=== PATIENT | female | born 1950 | race Caucasian/White ===

== ENCOUNTER → 2017-09-09 13:30 | Outpatient (CLI) | payer OTHER, SELFPAY ==
--- NOTE | 2017-09-09 13:33 | RAD_ITS ---
STUDY: X-RAY - RIGHT TIBIA AND FIBULA REASON FOR EXAM: Female, 67 years old. Pain TECHNIQUE: 3 view(s) of the tibia and fibula were obtained. COMPARISON: None. FINDINGS: Normal visualized tibia. Normal visualized fibula. The soft tissue structures are unremarkable. RAD/Tibia & Fibula 2 Views IMPRESSION: Normal x-ray examination of the tibia and fibula. Electronically Signed: Miki Turpin MD at 4:24 EDT , Service support ,
--- NOTE | 2017-09-09 13:35 | RAD_ITS ---
STUDY: X-RAY - RIGHT FOOT CLINICAL: Female, 67 years old. Midfoot pain, bruising TECHNIQUE: 3 view(s) of the foot. COMPARISON: None. FINDINGS: Normal talus, calcaneus, and tarsal bones. Normal visualized subtalar, talonavicular, calcaneocuboid, tarsal and tarsometatarsal articulations. Normal metatarsi. Normal metatarsophalangeal joint of the great toe. Normal tibial and fibular sesamoid bones. Normal interphalangeal joint of the great toe. Normal phalanges of the great toe. Normal second through fifth metatarsophalangeal joints. Normal interphalangeal joints and phalanges of the lesser toes. The soft tissue structures are unremarkable. RAD/Foot min 3 Views IMPRESSION: Normal x-ray examination of the foot. Electronically Signed: Steve Magdaleno MD at 8:08 EDT , Service support ,
== END ==
PROVIDERS: Family Provider Internal Medicine; PCP Internal Medicine; Visit Provider Nurse Practitioner Gerontology
DX: S89.91XA Unspecified injury of right lower leg, initial encounter (principal); M79.671 Pain in right foot
CPT/HCPCS: 73590; 73630

== ENCOUNTER → 2018-05-23 08:28 | Outpatient (CLI) | payer MEDICARE, OTHER, SELFPAY ==
[2017-07-01 16:06] VITALS: BMI 30.2
--- NOTE | 2018-05-23 08:32 | US_ITS ---
STUDY: ULTRASOUND OF THE FEMALE PELVIS - COMPLETE REASON FOR EXAM: Female, 68 years old. Bloating status post hysterectomy LMP: Unknown. TECHNIQUE: Transabdominal and Transvaginal. TECHNICAL QUALITY: Adequate. COMPARISON: CT November 02, 2012. FINDINGS: The uterus is absent consistent with hysterectomy The right ovary is non-visualized. The left ovary is visualized. The left ovary measures 2.5 x 2.0 x 1.4 cm. There is 1.4 cm cyst There is no visualized left adnexal mass or complex lesion. There is normal arterial and normal venous vascularity. There is no fluid in the cul-de-sac. The pre void volume of the bladder was 68 ml. The post void volume of the bladder was 0 ml. US/Transvaginal Non- IMPRESSION: Status post hysterectomy. Small left-sided cyst. Electronically Signed: Rolando Montalvo MD at 18:24 EDT , Service support ,
--- NOTE | 2018-05-23 08:32 | US_ITS ---
STUDY: ABDOMINAL ULTRASOUND REASON FOR EXAM: Female, 68 years old. Bloating and nausea. Discomfort. TECHNIQUE: Transabdominal ultrasound was performed with real-time and static urena scale imaging. TECHNICAL QUALITY: Adequate. COMPARISON: CT of the abdomen and pelvis, November 01, 2012. FINDINGS: Liver: The liver measures 17.0 cm. There is normal echogenicity of the liver. The bile ducts are within normal limits. There is hepatic color flow. The direction of portal flow is hepatopetal. There is no demonstrated mass lesion. Gallbladder: Normal distended gallbladder. The gallbladder wall measures 2 mm. There is a negative sonographic Hollis's sign. There is no pericholecystic fluid. There are no gallstones. Common Bile Duct (C.B.D.): The common bile duct measures 4 mm. Pancreas: Normal size of the head, body and proximal tail of the pancreas. The distal tail is obscured. There is normal echogenicity of the pancreas. There is no demonstrated pancreatic mass or cyst. Spleen: Normal size of the spleen. The spleen measures 11.8 cm. There are calcified granulomata seen within the spleen. Right Kidney: Normal size of the right kidney. The right kidney measures 10.1 cm. Normal renal cortex. The right cortex measures 1.4 cm. There is no demonstrated renal mass or cyst. There is no right hydronephrosis. Left Kidney: Normal size of the left kidney. The left kidney measures 10.1 cm. Normal renal cortex. The left cortex measures 1.8 cm. There is no demonstrated renal mass or cyst. There is no left hydronephrosis. Aorta: There is no abdominal aortic aneurysm. Mild atherosclerotic changes are seen. I.V.C.: The IVC is patent. There is no ascites. Examination of the abdominal wall was performed at a point of palpable mass. This is a site of frequent some cutaneous injection. This area there is a mildly echogenic focus within the subcutaneous fat measuring approximately 3.7 cm. US/Abdomen Complete IMPRESSION: 1. Normal abdominal ultrasound examination. 2. A faintly echogenic focus in the subcutaneous fat in the abdominal wall. There is no definite mass. Electronically Signed: Evin Hoyos DO at 10:21 EDT Tel [phone], Service support ,
== END ==
PROVIDERS: Family Provider Internal Medicine; PCP Internal Medicine; Referring Provider Nurse Practitioner; Visit Provider Nurse Practitioner
DX: R14.0 Abdominal distension (gaseous) (principal)
CPT/HCPCS: 76700; 76830

== ENCOUNTER → 2018-06-12 08:36 | Outpatient (CLI) | payer MEDICARE, OTHER, SELFPAY ==
--- NOTE | 2018-06-12 08:38 | NM_ITS ---
CLINICAL: 68-year-old female with reported history of chronic nausea and abdominal bloating. RADIONUCLIDE HEPATOBILIARY SCINTIGRAPHY COMPARISON: Abdominal ultrasound report 05/23/2018 FINDINGS: Following the intravenous administration of 5.6 mCi of 99m Tc Mebrofenin, hepatobiliary images reveal: 1. Relatively prompt and homogeneous radiopharmaceutical concentration is noted by a normal sized liver. No parenchymal defects are identified. 2. Gallbladder activity is identified at 15 minutes post radiopharmaceutical administration. 3. Small intestinal tract is observed at 45 minutes following tracer injection. 4. Washout of the radiopharmaceutical by the hepatic parenchyma appears qualitatively normal. Cholecystokinin (0.02 ug/kg) was administered intravenously over a 30-minute period. The post CCK gallbladder ejection fraction calculated at 20 minutes following Cholecystokinin administration was noted to be 73.0 % (normal greater than 35%). During 30 minutes of post CCK imaging, there is no scintigraphic evidence of reflux of the radiotracer into the common hepatic duct or refilling of the gallbladder. RI/Hepatobilliary Img w/Pharm Int IMPRESSION: 1. NORMAL 99m Tc Mebrofenin hepatobiliary imaging examination with Cholecystokinin. A. A gallbladder ejection fraction calculated to be greater than 35% following the administration of Cholecystokinin makes the probability of functional hepatobiliary disease (gallbladder and/or sphincter of Oddi dyskinesia) and/or organic hepatobiliary disease (chronic acalculous cholecystitis and/or cystic duct syndrome) to be low. (Kecia Mcpherson et al, Journal of Nuclear Medicine 32:1695, 1991). Electronically Signed: Brooks Prieto DO at 23:32 EDT Tel , Service support ,
== END ==
PROVIDERS: Family Provider Internal Medicine; PCP Internal Medicine; Referring Provider Internal Medicine; Visit Provider Internal Medicine
DX: R10.13 Epigastric pain (principal)
CPT/HCPCS: 78227; A9537; J2805

== ENCOUNTER → 2018-06-17 07:29 | Outpatient (CLI) | payer MEDICARE, OTHER, SELFPAY ==
[2017-07-01 16:06] VITALS: BMI 30.2
--- NOTE | 2018-06-17 07:31 | BI_ITS ---
MAMMOGRAPHY - BILATERAL SCREENING REASON FOR EXAM: Female, 68 years old. Routine annual screening examination. PERTINENT HISTORY: Non-contributory. TECHNIQUE: Digital bilateral breast abel (3D mammographic acquisition) in the CC and MLO projections. 2-D mediolateral oblique (MLO) and craniocaudad (CC) views of both breasts were obtained. CAD: Full Field Digital Mammography with Computer Added Detection was performed. COMPARISON: Comparison is made with prior study dated August 21, 2016 and May 23, 2015. FINDINGS: Breast Composition: There are scattered areas of fibroglandular density. There are no dominant masses or suspicious calcifications. Stable 1 cm well-defined nodule in the inferior medial superficial aspect of the left breast. Correlation with ultrasound of the breasts is recommended. No other significant abnormalities are identified. There has been no significant change since the prior study. BI/SCREENING MAMM (CAD), BILAT IMPRESSION: Stable bilateral screening mammogram. Correlation with ultrasound of the nodular density in the inferior medial aspect of the left breast is recommended. ASSESSMENT CATEGORY: BIRADS Category 0: Incomplete. Need additional imaging evaluation. A letter regarding these results will be sent to the patient by the facility within 30 days. Approximately 10% of breast cancers are not detected by mammography. A normal mammogram should not delay biopsy of a clinically suspicious abnormality. [id number] Electronically Signed: Nixon Ambrocio, at 9:33 EDT , Service support ,
== END ==
PROVIDERS: Family Provider Internal Medicine; PCP Internal Medicine; Referring Provider Nurse Practitioner; Visit Provider Nurse Practitioner
DX: Z12.31 Encounter for screening mammogram for malignant neoplasm of breast (principal)
CPT/HCPCS: 77063; 77067

== ENCOUNTER → 2018-06-19 09:08 | Outpatient (CLI) | payer MEDICARE, OTHER, SELFPAY ==
--- NOTE | 2018-06-19 09:10 | US_ITS ---
STUDY: ULTRASOUND BREAST - LEFT REASON FOR EXAM: Female, 68 years old. Abnormal screening mammogram. TECHNIQUE: Axial and longitudinal images of the LEFT breast were performed with a high resolution ultrasound transducer. COMPARISON: Comparison is made with prior mammogram dated June 17, 2018. FINDINGS: LEFT Breast: The lower half of the left breast was examined ultrasound. No sonographic abnormality is seen. Routine annual mammographic follow-up is recommended. US/Breast Limited Unilateral IMPRESSION: Unremarkable sonographic examination of the lower half of the breast. ASSESSMENT CATEGORY: BIRADS Category 1: Negative. A letter regarding these results will be sent to the patient by the facility within 30 days. Electronically Signed: Nixon Ambrocio, at 12:46 EDT , Service support ,
== END ==
PROVIDERS: Family Provider Internal Medicine; PCP Internal Medicine; Referring Provider Nurse Practitioner; Visit Provider Nurse Practitioner
DX: R92.8 Other abnormal and inconclusive findings on diagnostic imaging of breast (principal)
CPT/HCPCS: 76642

== ENCOUNTER → 2019-03-26 11:10 | Outpatient (CLI) | payer MEDICARE, OTHER, SELFPAY ==
[2018-07-07 12:46] VITALS: BMI 29.8
--- NOTE | 2019-03-26 11:16 | RAD_ITS ---
STUDY: X-RAY - RIGHT FEMUR REASON FOR STUDY: Female, 69 years old. pain upper outer thigh, not associated with activity, usually at night in bed or while sitting TECHNIQUE: AP and lateral view(s) of the femur. COMPARISON: None. FINDINGS: Normal visualized femur. Normal visualized soft tissue structure. RAD/Femur Min 2 Views IMPRESSION: Normal x-ray examination of the femur. Electronically Signed: Alek Gomez MD (Brooks) at 14:17 EST , Service support ,
== END ==
PROVIDERS: PCP Internal Medicine; Referring Provider Internal Medicine; Visit Provider Internal Medicine
DX: M89.8X5 Other specified disorders of bone, thigh (principal)
CPT/HCPCS: 73552

== ENCOUNTER 2019-06-23 09:08 | Emergency (ER) | payer MEDICARE, OTHER, SELFPAY ==
[2018-07-07 12:46] VITALS: BMI 29.8
[2019-06-23 09:09] VITALS: BP 122/72; PULSE 89; RESP 18; TEMP 36.1; O2SAT 96; BMI 23.8
--- NOTE | 2019-06-23 09:27 | ED.DCSUM_ITS ---
History of Present Illness Chief Complaint: Abn Labs Informant: Patient Onset: - - Onset unknown. Blood work was obtained Friday and patient was told her potassium is low, 3.1 Context: - - Unknown Timing: - - Unknown Quality: Low potassium Location: Not applicable Current Severity: Mild Maximum Severity: Mild Worsened by: Unknown. Relieved by: Nothing Associated Symptoms: Unintentional weight loss 30 pounds since December 2017 and bone pain Narrative: Patient is a 69-year-old woman with history of coronary disease, hypertension, hypercholesterolemia, diabetes and hypothyroidism who presents because of low potassium. Patient states she had blood work on Friday and her potassium is 3.1. She states she discontinued taking her blood pressure medicine, which included hydrochlorothiazide because her blood pressures were low, systolic in the 80s. She denies fever or chills. She does report weight loss of 30 pounds that is unintentional since December 2018 as well as intermittent night sweats the past month and bone pain for specifically right femur region mother had history of myelodysplastic disorder. Patient denies any complaint of headache, ocular, visual auditory symptoms. She denies cardiac symptoms or respiratory symptoms. She denies vomiting, diarrhea or constipation. She does report intermittent nausea the past month. She has not noted any change in the color, consistency or size of her stool. She she denies urologic symptoms. She denies neurologic symptoms. Prior similar symptoms: No Recent Illness/Hospitalization: No - Past Medical History (1) Hypothyroidism Status: Chronic (2) Type 2 diabetes mellitus Status: Chronic (3) Atherosclerosis of coronary artery of [place] without angina pectoris Status: Chronic Comment: CABG x 2 Sequential MANCILLA-LAD and D1 06/15/2007 (4) Essential (primary) hypertension Status: Chronic (5) Hyperlipidemia Status: Chronic (6) H/O coronary artery bypass surgery Status: Resolved Comment: CABG x 2 Sequential MANCILLA-LAD and D1 06/15/2007 (7) Lipoprotein deficiency Status: Resolved Past Medical History - Allergies and Home Meds Allergies/Adverse Reactions: Allergies LISBETH Inhibitors Adverse Reaction (Verified 06/23/19 09:12) cough Primary Care Physician: Kassi Godoy DO [Primary Care Provider] - Prior records reviewed: Yes Surgical History: noncontributory Lives: Alone Smoking Status: Never smoker Alcohol: None Drugs: None Review of Systems General: Reports: Malaise, Sweats, Weight loss. Denies: Chills, Fever, Subjective Eyes: Denies: Visual changes - bilaterally, Blurred Vision - bilaterally ENT: Denies: Rhinorrhea, Sore throat Cardiovascular: Reports: Palpitations. Denies: Chest pain, Heart racing Respiratory: Denies: Dyspnea, Cough, Sputum, Dyspnea on exertion, Orthopnea, Paroxysmal nocturnal dyspnea Gastrointestinal: Reports: Abdominal pain, Nausea. Denies: Vomiting, Diarrhea, Constipation, Melena, Hematochezia Genitourinary: Denies: Dysuria, Hematuria, Frequency Musculoskeletal: Reports: Back pain - Mid back intrascapular region, Extremity Pain, - - Complains of cramping calves recently. Symptoms are not with activity to suggest claudication. Denies: Myalgias, Arthralgias, Neck pain, Swelling Skin: Denies: Rash, Wounds Neurological: Denies: Headache, Weakness, Parasthesia Psych: Denies: Depression Endocrine: Denies: Polyuria, Polydipsia Hematologic: Denies: Easy bruising, Easy bleeding Allergy: Denies: Uticaria Physical Exam Vital Signs/Narrative: Vital Signs Temp Pulse Resp BP Pulse Ox 06/23/19 09:09 96.9 F L 89 18 122/72 H 96 Inital Vital Signs reviewed: Yes General: Well nourished, Well developed, No Acute Distress Head: Normocephalic, Atraumatic Eyes: Perrl, EOMI. Negative for: Pale conjunctiva, Scleral icterus ENT: Moist mucous membranes, No rhinorrhea Neck: Supple, Nontender, No lymphadenopathy, No JVD Cardiovascular: Regular rate, Regular rhythm, No murmurs, Normal S1, Normal S2 Respiratory: No distress, CTA bilaterally, Chest nontender Abdomen: Soft, Nontender, Nondistended, Normal bowel sounds, No masses Back: Nontender, Normal Inspection. Negative for: CVA tenderness Extremities: Nontender, No edema Skin: Normal color, No rash, No Trauma. Negative for: Cyanosis, Diaphoresis, Jaundice Neurological: Alert, Oriented x3, Cranial nerves II-XII grossly intact, Normal Strength, Normal Sensation Psychological: Normal affect, Normal Mood Diagnostic/Tx/Re-eval Laboratory Results 06/23/19 06/23/19 09:35 09:35 WBC 8.8 RBC 5.17 Hgb 14.2 Hct 43.4 MCV 83.9 MCH 27.5 MCHC 32.7 RDW Std Deviation 42.3 RDW Coeff of Nolvia 13.8 Plt Count 177 MPV 10.4 Immature Gran % (Auto) 0.300 Neut % (Auto) 77.2 H Lymph % (Auto) 13.2 L Miller % (Auto) 6.9 Eos % (Auto) 1.9 Baso % (Auto) 0.5 Absolute Neuts (auto) 6.8 Absolute Lymphs (auto) 1.16 Nucleated RBC % 0 ESR 4 Sodium 143 Potassium 3.1 L Chloride 104 Carbon Dioxide 32.0 Anion Gap 7 BUN 17 Creatinine 1.32 H Estim Creat Clear Calc 32.26 Est GFR (MDRD) Af Amer 51 L Est GFR (MDRD) Non-Af 43 L BUN/Creatinine Ratio 12.9 Glucose 128 H Calcium 9.6 Total Bilirubin 0.80 AST 14 L ALT 19 Alkaline Phosphatase 61 Total Protein 7.2 Albumin 3.9 Globulin 3.3 Albumin/Globulin Ratio 1.2 - Medical Decision Making She presents with multiple symptoms. With history of fatigue, malaise, night sweats and weight loss need to rule out malignancy. Will review x-rays of right hip/femur that were obtained earlier this year. Differential would include lung cancer, colon cancer, hematologic and breast cancer. Patient is status post hysterectomy secondary to abnormal bleeding in her 20s. The hysterectomy was n ot due to cancer. She did receive 40 mEq of potassium chloride p.o. Blood work was obtained to evaluate her symptoms and differential diagnosis. Potassium is 3.1. She received 2 doses of potassium chloride solution of 40 mEq. She was discharged with prescription for potassium. Her creatinine is slightly elevated 1.32. She was instructed to follow-up with her primary care physician for repeat blood work in 5 to 7 days. She was informed her other tests were negative. Patient's weight loss is due to her diabetic medication. ED Disposition - Plan for ED Patient: Disposition: Home or Assisted Living Diagnosis: Hypokalemia, Unintentional weight loss of 10% body weight within 6 months, Acute renal insufficiency, Type 2 diabetes mellitus, Hypothyroidism, Hyperlipidemia Instructions: ED Potassium Deficiency Prescriptions: Potassium Chloride 20 meq PO DAILY #60 capsule.er Prescription Printed Referrals: Kassi Godoy DO [Primary Care Provider] - 5-7 Days
[2019-06-23 09:50] LABS: Erythrocyte Sedimentation Rate 4 mm/hr (0-30)
[2019-06-23 09:51] LABS: Absolute Lymphocyte Count 1.16 X10^3/uL (0.83-4.51); Absolute Neutrophil Count 6.8 X10^3/uL (2.0-7.7); Basophil# 0.04 X10^3/uL; Basophil% 0.5 % (0-1); Eosinophil# 0.17 X10^3/uL; Eosinophils% 1.9 % (0-5); Hematocrit 43.4 % (37-47); Hemoglobin 14.2 g/dL (12.0-15.0); Lymphocyte # 1.16 X10^3/ul (4.0); Lymphocyte % 13.2 % (19-41); Mean Corp Hgb Conc 32.7 g/dL (32-36); Mean Corpuscular Hgb 27.5 pg (27.0-32.0); Mean Corpuscular Volume 83.9 fL (81-99); Mean Platelet Vol. 10.4 fl (6.2-12.0); Monocyte# 0.61 X10^3/uL; Monocyte% 6.9 % (0-10); NRBC Flagged by Analyzer 0 % (0-5); Neutrophil # 6.79 X10^3/uL (2.7-7.7); Neutrophil % 77.2 % (47-70); Platelet Count 177 K/mm3 (150-450); RBC Distribution Width CV 13.8 % (11.6-14.6); RBC Distribution Width SD 42.3 fl (35.1-43.9); Red Blood Count 5.17 M/mm3 (4.2-5.4); White Blood Count 8.8 K/mm3 (4.4-11.0)
[2019-06-23 10:01] LABS: ALB/GLOB Ratio 1.2 RATIO (0.9-2.4); AST(SGOT) 14 U/L (15-37); Alanine Aminotransfer ALT/SGPT 19 U/L (13-56); Albumin, Serum 3.9 g/dL (3.2-5.0); Alkaline Phosphatase 61 U/L (45-117); Anion Gap 7 (5-15); BUN 17 mg/dL (7-18); BUN/Creat Ratio 12.9 RATIO (10-20); Calcium,Total 9.6 mg/dL (8.5-10.1); Chloride 104 mmol/L (98-107); Creatinine, Serum 1.32 mg/dL (0.55-1.02); EST Glomerular Filtration Rate 43 mL/min (>60); Est Glom Filt Rate - Afr Amer 51 mL/min (>60); Estimated Creatinine Clearance 32.26 ml/min; Globulin 3.3 g/dL (2.2-4.2); Glucose 128 mg/dL (74-106); Potassium 3.1 mmol/L (3.5-5.1); Protein, Total 7.2 g/dL (6.4-8.2); Sodium Level 143 mmol/L (136-145)
[2019-06-23 10:48] VITALS: BP 113/83; PULSE 80; RESP 12; O2SAT 94
== END 2019-06-23 10:54 | disposition home or self-care (01) ==
PROVIDERS: Emergency Provider Emergency Medicine; PCP Internal Medicine
DX: E87.6 Hypokalemia (principal); R63.4 Abnormal weight loss; N28.9 Disorder of kidney and ureter, unspecified; E11.9 Type 2 diabetes mellitus without complications; E03.9 Hypothyroidism, unspecified; E78.5 Hyperlipidemia, unspecified; I25.10 Atherosclerotic heart disease of native coronary artery without angina pectoris; I10 Essential (primary) hypertension; Z95.1 Presence of aortocoronary bypass graft; Z68.23 Body mass index [BMI] 23.0-23.9, adult; Z79.82 Long term (current) use of aspirin; Z79.84 Long term (current) use of oral hypoglycemic drugs; Z79.899 Other long term (current) drug therapy
CPT/HCPCS: 80053; 85025; 85652; 99285; A4216

== ENCOUNTER → 2019-09-30 14:47 | Outpatient (CLI) | payer MEDICARE, OTHER, SELFPAY ==
[2019-07-08 11:38] VITALS: BMI 24.3
--- NOTE | 2019-09-30 14:55 | BI_ITS ---
MAMMOGRAPHY - BILATERAL SCREENING REASON FOR EXAM: Female, 69 years old. Routine annual screening examination. PERTINENT HISTORY: Non-contributory. TECHNIQUE: Digital bilateral breast maira (3D mammographic acquisition) in the CC and MLO projections. 2-D mediolateral oblique (MLO) and craniocaudad (CC) views of both breasts were obtained. CAD: Full Field Digital Mammography with Computer Added Detection was performed. COMPARISON: Comparison is made with prior examination dated 06/17/2018 and 08/21/2016. FINDINGS: Breast Composition: There are scattered areas of fibroglandular density. There are no dominant masses or suspicious calcifications. Stable 1 cm well-defined nodule in the slightly upper lateral aspect of the left breast. No other significant abnormalities are identified. There has been no significant change since the prior study. BI/SCREEN MAMM (CAD) W/MAIRA BILAT IMPRESSION: Stable bilateral screening mammogram. Yearly follow-up mammogram recommended. (A) ASSESSMENT CATEGORY: BIRADS Category 2: Benign. A letter regarding these results will be sent to the patient by the facility within 30 days. Approximately 10% of breast cancers are not detected by mammography. A normal mammogram should not delay biopsy of a clinically suspicious abnormality. [id number] Electronically Signed: Nixon Ambrocio, at 15:49 EDT , Service support ,
== END ==
PROVIDERS: PCP Internal Medicine; Referring Provider Internal Medicine; Visit Provider Internal Medicine
DX: Z12.31 Encounter for screening mammogram for malignant neoplasm of breast (principal)
CPT/HCPCS: 77063; 77067

== ENCOUNTER → 2019-10-28 13:11 | Outpatient (CLI) | payer MEDICARE, OTHER, SELFPAY ==
[2019-07-08 11:38] VITALS: BMI 24.3
--- NOTE | 2019-10-28 13:17 | BD_ITS ---
STUDY: DUAL ENERGY X-RAY ABSORPTIOMETRY / DXA REASON FOR EXAM: Female, 69 years old. RESERVATIONS SPECIALIST -- DIABETIC- TAKES MEDS -- TAKES SYNTHROID -- TAKES DIURETIC NEEDED -- DOES MODERATE AMOUNT OF EXERCISE -- AMPARO OF 0.5 INCH TECHNIQUE: Bone Mineral Density (BMD) measurements of lumbar spine and bilateral hips were obtained. COMPARISON: Comparison is made with prior study dated 10/12/2013. FINDINGS: Lumbar Spine (L1-L4): g/cm2 (1.064) / T-score (-1.0) / Z-score (0.7) Findings are suggestive of normal bone density with a low fracture risk. Left Femur Total: g/cm2 (1.047) / T-score (0.3) / Z-score (1.7) Left Femoral Neck: g/cm2 (0.983) / T-score (-0.4) / Z-score (1.2) Right Femur Total: g/cm2 (1.025) / T-score (0.1) / Z-score (1.5) Right Femoral Neck: g/cm2 (0.961) / T-score (-0.6) / Z-score (1.1) The T-Scores on the most recent prior examination were: Lumbar Spine (L1-L4): There has been improvement of bone density since the previous examination. Left Femur Total: which represents a worsening of 0.9%. Right Femur Total: which represents a worsening of 8.7%. BD/Dexa Bone Density Study IMPRESSION: The patient is considered normal as outlined below according to World [employer] Organization (WHO) criteria with a low fracture risk. There has been worsening of bone density since the previous examination. Reference Information: The T-score is the number of standard deviations above or below the standard which is normal for young adults at their peak bone mineral density. The World Health Organization (WHO) interprets the T-scores as follows: Above -1 Normal bone density Between -1 and -2.5 Osteopenia Equal to / or below -2.5 Osteoporosis As a practical clinical guideline, osteopenia may be graded as follows: Mild -1 through -1.5 Moderate -1.6 through -2.0 Severe -2.1 through -2.4 The Z-score is the number of standard deviations above or below age-matched controls. A Z-score of less than -1.5 would be considered abnormal. References: 1. NIH Osteoporosis and Related Bone Diseases http://www.osteo.org 2. International Society for Clinical Densitometry http://www.iscd.org 3. National Osteoporosis Foundation http://www.nof.org Electronically Signed: Nixon Ambrocio, at 15:06 EDT , Service support ,
== END ==
PROVIDERS: PCP Internal Medicine; Referring Provider Internal Medicine; Visit Provider Internal Medicine
DX: Z78.0 Asymptomatic menopausal state (principal)
CPT/HCPCS: 77080

== ENCOUNTER 2020-02-07 01:59 | Emergency (ER) | payer MEDICARE, OTHER, SELFPAY ==
[2019-07-08 11:38] VITALS: BMI 24.3
[2020-02-07 02:00] VITALS: BP 176/93; PULSE 75; RESP 20; TEMP 36.5; O2SAT 96; BMI 25.9
--- NOTE | 2020-02-07 02:08 | CT_ITS ---
STUDY: CT ABDOMEN AND PELVIS WITH CONTRAST REASON FOR EXAM: Female, 70 years old. Left lower quadrant pain, nausea, elevated blood pressure. RADIATION DOSAGE (If Supplied By Facility): CTDIvol = ( 12.67 ) mGy, DLP = ( 619.01 ) mGycm TECHNIQUE: Transaxial images were obtained from the dome of the diaphragm to the symphysis pubis without oral contrast. IV 100mL Isovue-[id number] was administered. Sagittal and coronal images were reconstructed. Individualized dose optimization techniques were used for this CT. COMPARISON: None. FINDINGS: The visualized lung bases are unremarkable. Mild cardiomegaly. Coronary artery calcifications. Mildly elevated right hemidiaphragm. Normal liver. Normal gallbladder and extrahepatic biliary system. There are multiple benign calcified granulomata of the spleen. Normal pancreas. Normal bilateral adrenal glands. Normal right kidney. Left hydronephrosis and circumferential perinephric fluid secondary to a 1 mm x 1 mm ureterovesicular junction stone. Distal stomach not well distended limiting evaluation. Normal small intestine. Normal colon. The appendix is visualized and appears normal. There is atherosclerotic calcification of the abdominal aorta, without a demonstrated aneurysm. Normal inferior vena cava. Normal retroperitoneum. No intra-abdominal free air. Normal urinary bladder. There is absence of the uterus consistent with a prior hysterectomy. No adnexal masses seen. Normal abdominal wall. Multilevel degenerative changes of the lumbar spine. Patchy stranding within the anterior subcutaneous soft tissue of the lower abdomen suggestive of medication injection. CT/Abdomen/Pelvis W IV Cont ONLY IMPRESSION: Mild left hydronephrosis secondary to a very small ureterovesicular junction stone. Circumferential mild left perinephric fluid. Recommend continued follow-up. Mild cardiomegaly. Coronary artery calcifications. Electronically Signed: Ghassan Harp MD at 4:49 EST , Service support ,
--- NOTE | 2020-02-07 02:08 | ED.VIS.GEN ---
History of Present Illness Chief Complaint: Abd Pain Informant: Patient Narrative: 70-year-old female with past medical history of hypertension and diabetes presents with concern for left lower quadrant pain. States it began approximately 4 to 5 hours ago. States it is aching and radiating through to her left back. No relieving or worsening factors. Denies any fever, chills, nausea, vomiting, diarrhea, constipation, vaginal bleeding or discharge. Past Medical History - Allergies and Home Meds Allergies/Adverse Reactions: Allergies LISBETH Inhibitors Adverse Reaction (Verified 06/23/19 09:12) cough Primary Care Physician: Kassi Godoy DO [Primary Care Provider] - Prior records reviewed: Yes Past Medical History: - - Hypertension, diabetes Surgical History: hysterectomy Lives: Spouse/ Significant Other Smoking Status: Never smoker Alcohol: None Drugs: None Review of Systems General: Denies: Chills, Fever, Sweats Eyes: Denies: Visual changes - bilaterally, Diplopia ENT: Denies: Rhinorrhea, Sore throat Cardiovascular: Denies: Chest pain, Palpitations Respiratory: Denies: Dyspnea, Cough, Dyspnea on exertion Gastrointestinal: Reports: Abdominal pain. Denies: Nausea, Vomiting, Diarrhea, Melena, Hematochezia Genitourinary: Denies: Dysuria, Hematuria, Frequency Musculoskeletal: Denies: Back pain, Extremity Pain Skin: Denies: Rash, Wounds Neurological: Denies: Headache, Weakness, Numbness Physical Exam Vital Signs/Narrative: Vital Signs Temp Pulse Resp BP Pulse Ox 02/07/20 02:00 97.7 F L 75 20 H 176/93 H 96 Inital Vital Signs reviewed: Yes General: Well nourished, Well developed, No Acute Distress Head: Normocephalic, Atraumatic Eyes: Perrl, EOMI ENT: Moist mucous membranes, No rhinorrhea Neck: Supple, Nontender Cardiovascular: Regular rate, Regular rhythm, No murmurs Respiratory: No distress, CTA bilaterally, Chest nontender Abdomen: Soft, Nondistended, Normal bowel sounds, - - TTP left lower quadrant. Back: Nontender, Normal Inspection Extremities: Nontender, No edema Skin: Normal color, No rash Neurological: Alert, Oriented x3, Cranial nerves II-XII grossly intact, Normal Strength, Normal Sensation Psychological: Normal affect, Normal Mood Diagnostic/Tx/Re-eval Clinical Impression(s) from Imaging Studies Abdomen/Pelvis CT 02/07/20 02:08 IMPRESSION: Mild left hydronephrosis secondary to a very small ureterovesicular junction stone. Circumferential mild left perinephric fluid. Recommend continued follow-up. Mild cardiomegaly. Coronary artery calcifications. Electronically Signed: Ghassan Harp MD at 4:49 EST , Service support , Laboratory Data 02/07/20 02/07/20 02/07/20 02:15 02:15 03:00 WBC 7.9 RBC 5.36 Hgb 14.8 Hct 46.9 MCV 87.5 MCH 27.6 MCHC 31.6 L RDW Std Deviation 42.8 RDW Coeff of [place]ol[place] 13.5 Plt Count 184 MPV 10.3 Immature Gran % (Auto) 0.400 Neut % (Auto) 69.4 Lymph % (Auto) 18.4 L [place] % (Auto) 8.0 Eos % (Auto) 3.3 Baso % (Auto) 0.5 Absolute Neuts (auto) 5.5 Absolute Lymphs (auto) 1.45 Nucleated RBC % 0 Sodium 145 Potassium 3.3 L Chloride 108 H Carbon Dioxide 31.0 Anion Gap 6 BUN 17 Creatinine 1.21 H Estim Creat Clear Calc 34.71 Est GFR (MDRD) Af Amer 57 L Est GFR (MDRD) Non-Af 47 L BUN/Creatinine Ratio 14.0 Glucose 98 Calcium 9.6 Total Bilirubin 0.90 AST 13 L ALT 19 Alkaline Phosphatase 77 Total Protein 7.2 Albumin 4.1 Globulin 3.1 Albumin/Globulin Ratio 1.3 Lipase 219 Urine Color Yellow Urine Clarity Sl. Cloudy Urine pH 6.0 Ur Specific [place] 1.020 Urine Protein 100 H Urine Glucose (UA) Normal Urine Ketones Negative Urine Occult Blood 50 H Urine Nitrite Negative Urine Bilirubin Negative Urine Urobilinogen Normal Ur Leukocyte Esterase 500 H Urine RBC 10-25 SEEN Urine WBC 10-25 SEEN Ur Squamous Epith Cells 0-5 SEEN Urine Bacteria 1+ Urine Mucus 0 SEEN - Medical Decision Making Patient appears well and nontoxic. Patient having pain secondary to left abdominal and flank pain. CT shows 1 mm UVJ stone with perinephric stranding and mild hydronephrosis. Patient was given fluids, morphine, Zofran, and Dilaudid. Patient's pain was resolved. Urine shows leukocytes without nitrites. Patient will be placed on Keflex, Percocet, Zofran and asked to follow-up with primary care. Asked to return for any intractable vomiting or pain. Patient agreeable and discharged home in stable condition. Impression: 1. Ureterolithiasis ED Disposition - Plan for ED Patient: Disposition: Home or Assisted Living Instructions: Kidney Stone (Urine) Prescriptions: Cephalexin [Keflex] 500 mg PO Q6 #28 cap Prescription Printed Oxycodone HCl/Acetaminophen [Percocet 5/325] 1 tab PO Q6H PRN PRN 3 Days #12 tab PRN Reason: Pain Prescription Printed Ondansetron [Zofran Odt] 4 mg PO Q8H PRN PRN #10 tab PRN Reason: Nausea Prescription Printed Referrals: Kassi Godoy DO [Primary Care Provider] - 2 Days
[2020-02-07] MEDS: Morphine 4 MG/ML Syringe IV (02:18)
[2020-02-07] MEDS: Ondansetron 4 MG/2 ML Vial IV (02:18)
[2020-02-07] MEDS: 0.9% Normal Saline 1,000 ML 1000 ML IV (02:18)
[2020-02-07 02:41] LABS: Absolute Lymphocyte Count 1.45 X10^3/uL (0.83-4.51); Absolute Neutrophil Count 5.5 X10^3/uL (2.0-7.7); Basophil# 0.04 X10^3/uL; Basophil% 0.5 % (0-1); Eosinophil# 0.26 X10^3/uL; Eosinophils% 3.3 % (0-5); Hematocrit 46.9 % (37-47); Hemoglobin 14.8 g/dL (12.0-15.0); Lymphocyte # 1.45 X10^3/ul (4.0); Lymphocyte % 18.4 % (19-41); Mean Corp Hgb Conc 31.6 g/dL (32-36); Mean Corpuscular Hgb 27.6 pg (27.0-32.0); Mean Corpuscular Volume 87.5 fL (81-99); Mean Platelet Vol. 10.3 fl (6.2-12.0); Monocyte# 0.63 X10^3/uL; NRBC Flagged by Analyzer 0 % (0-5); Neutrophil # 5.48 X10^3/uL (2.7-7.7); Neutrophil % 69.4 % (47-70); Platelet Count 184 K/mm3 (150-450); RBC Distribution Width CV 13.5 % (11.6-14.6); RBC Distribution Width SD 42.8 fl (35.1-43.9); Red Blood Count 5.36 M/mm3 (4.2-5.4); White Blood Count 7.9 K/mm3 (4.4-11.0)
[2020-02-07 03:05] LABS: ALB/GLOB Ratio 1.3 RATIO (0.9-2.4); AST(SGOT) 13 U/L (15-37); Alanine Aminotransfer ALT/SGPT 19 U/L (13-56); Albumin, Serum 4.1 g/dL (3.2-5.0); Alkaline Phosphatase 77 U/L (45-117); Anion Gap 6 (5-15); BUN 17 mg/dL (7-18); Calcium,Total 9.6 mg/dL (8.5-10.1); Chloride 108 mmol/L (98-107); Creatinine, Serum 1.21 mg/dL (0.55-1.02); EST Glomerular Filtration Rate 47 mL/min (>60); Est Glom Filt Rate - Afr Amer 57 mL/min (>60); Estimated Creatinine Clearance 34.71 ml/min; Globulin 3.1 g/dL (2.2-4.2); Glucose 98 mg/dL (74-106); Lipase 219 U/L (73-393); Potassium 3.3 mmol/L (3.5-5.1); Protein, Total 7.2 g/dL (6.4-8.2); Sodium Level 145 mmol/L (136-145)
[2020-02-07 03:11] LABS: Mucous, Urine 0 SEEN /hpf (<or=2+)
[2020-02-07 03:12] LABS: Color, Urine Yellow (Yellow); Glucose, Dipstick Normal (Normal); Ketone-Dipstick Negative (Negative); Leukocyte Esterase-Dipstick 500 /ul (Negative); Nitrite-Dipstick Negative (Negative); Occult Blood-Urine 50 /ul (Negative); Protein-Dipstick 100 mg/dl (Negative); Urine Bilirubin Dipstick Negative (Negative); Urine Clarity Sl. Cloudy (Clear); Urine Urobilinogen Normal (Normal)
[2020-02-07 03:17] LABS: Red Blood Cells-Urine 10-25 SEEN /hpf (0-5); Squamous Epithelial Cells - UA 0-5 SEEN /hpf (5-10); White Blood Cells 10-25 SEEN /hpf (0-5)
[2020-02-07 03:18] LABS: Bacteria 1+ /hpf (None Seen)
[2020-02-07] MEDS: HYDROmorphone 0.5 MG/0.5 ML SYRINGE IV (03:35)
[2020-02-07 03:50] VITALS: PULSE 76; RESP 10; O2SAT 80
[2020-02-07 03:57] VITALS: BP 139/77; PULSE 72; RESP 12; O2SAT 100
[2020-02-07 05:26] VITALS: BP 137/98; PULSE 69; RESP 18; O2SAT 98
== END 2020-02-07 05:27 | disposition home or self-care (01) ==
PROVIDERS: Emergency Provider Emergency Medicine; PCP Internal Medicine
DX: N13.2 Hydronephrosis with renal and ureteral calculous obstruction (principal); I10 Essential (primary) hypertension; E11.9 Type 2 diabetes mellitus without complications; Z90.710 Acquired absence of both cervix and uterus; Z79.84 Long term (current) use of oral hypoglycemic drugs; Z79.82 Long term (current) use of aspirin; Z79.899 Other long term (current) drug therapy
CPT/HCPCS: 74177; 80053; 81001; 83690; 85025; 96361; 96374; 96375; 99283; J7030; Q9967; A4216; J2405

== ENCOUNTER 2020-05-01 11:07 | Outpatient (RCR) | payer MEDICARE, OTHER, SELFPAY | END 2020-05-01 23:59 | LOC: IMMUN 11:07 | PROVIDERS: PCP Internal Medicine; Visit Provider Family Medicine | DX: Z23 Encounter for immunization (principal) | CPT/HCPCS: 0011A; 0012A ==

== ENCOUNTER 2020-08-01 09:30 | Outpatient (RCR) | payer MEDICARE, OTHER, SELFPAY ==
--- NOTE | 2020-07-03 11:23 | HP.PTEVAL ---
Patient's Visit Information ROBERTO KIRK is a 70 year old F referred to Physical Therapy by Dr. Kassi Godoy DO with a diagnosis of R shoulder pain. Date of Evaluation: 07/03/20 Physical Therapist: VALERIY Michelle - Visit Plan Frequency: 2x /Week Duration: 4 Weeks Plan: 2X/ week for 4 weeks for progression of wand exercises (may do L as it is starting to hurt as well), scapular and postural exercises, RC strengthening, pec stretches, with HEP and modalities as needed. HEP: standing wand abd, supine wand flexion, and doorway Pec stretch and ER stretch - Subjective Since Dec-Jan her R shoulder has been bothering her. It has gotten better but she could not wash her hair or raise her arm above her shoulder or lift anything cause it would hurt. It would really hurt when she layed on her R side. She has been mostly sleeping on her back or stomach and tries to get arms comfortable. She does a lot of flip flopping cause of the pain. Now her L shoulder is starting to hurt because she has been babying her R shoulder. She wants to play golf this summer. She is not sure if golfing at the end of the season last year hurt it or she was moving furniture off the deck and was straining. It is getting better. She is R handed. She has no N&T. She has no neck pain. - Pain R shoulder pain Pain Intensity (Out of 10): 5 Pain Intensity Range: 8 Comment: with over use - Objective Certified Ophthalmic Assistant strength B 40#. Posture: sits with rounded shoulders. R shoulder AROM 71 degrees flexx, 66 degrees abd, 34 degrees ER, T12 IR. L Shoulder AROM WFL Flex and abd (increase pain at end range), ER 50 degrees, T8 IR. R shld MMT: flex and abd 3+/5, ER 4-/5, IR 4/5. L shld MMT: flex, abd, ER and IR 4/5. Pt winces when she went to reach behind her back. palpation R shoulder: tender along the bicep groove, and anterior shoulder. PROM R shoulder: pain at all end range motion. Discussed sitting with good posture and mechanics of the shoulder and impingement, ADL's and how to avoid bad shoulder posturing - Goals Goal 1:: I HEP Goal Time Frame: 4-6 Weeks Goal 2:: Increase R shoulder AROM to full AROM painfree Goal Time Frame: 4-6 Weeks Goal 3:: Increase R shoulder stretgth by 1/2 muscle grade (at time of eval: R shld MMT: flex and abd 3+/5, ER 4-/5, IR 4/5). Goal Time Frame: 4-6 Weeks Goal 4:: Sit/stand with upright posture with scapular retraction during therapy sessions Goal Time Frame: 4-6 Weeks - Rehabilitation Potential Rehabilitation Potential: Good - Anticipated Interventions Patient/Client Instruction: Educate patient on: Condition, Plan of Care For the Purpose of:: To decrease pain, To decrease swelling/inflammation, To increase ROM, To improve nutrient delivery to tissue, To improve muscle performance and motor function, To improve ability to perform ADL's, To increase tolerance to activity/condition/position, To improve health of tissue, To decrease soft tissue restriction, To increase flexibility/ROM Therapeutic Exercise to Include: Strength training, Postural training, Flexibilty training, Passive ROM, Active ROM, Scapular Strength/Stabilization For the Purpose of:: To decrease pain, To decrease swelling/inflammation, To increase ROM, To improve nutrient delivery to tissue, To improve muscle performance and motor function, To improve ability to perform ADL's, To increase tolerance to activity/condition/position, To improve ability of physical actions for home/community/work/leisure, To improve health of tissue, To decrease soft tissue restriction, To increase flexibility/ROM Manual Therapy Techniques to Include: Passive ROM For the Purpose of:: To increase ROM, To improve nutrient delivery to tissue Cryotherapy (ice pack, ice massage): Yes Ultrasound (thermal/non thermal): Yes For the Purpose of:: To decrease pain, To decrease swelling/inflammation, To increase ROM, To improve nutrient delivery to tissue Thank you for the opportunity to evaluate your patient. For Medicare and Medicare HMO plans, please review the plan of care and approve it. It will need to be FAXED BACK to us at [phone] for Medicare purposes. For Medicare only, by signing this I certify the plan of care. Please let me know if there are questions or concerns regarding this plan of care. Physician Signature: Date:
--- NOTE | 2020-08-01 09:54 | HP.PTREVAL_ITS ---
Dr. Kassi Godoy, DO, It has been my pleasure to treat ROBERTO KIRK over the last 9 visits for R shoulder pain. Please see the progress note below for an update on the physical therapy plan of care! Subjective: Pt feels better and thinks that the exercises and PT have been working. Last week she took is slow cause she was sore from harder workout. S he is back to normal today. She is doing her HEP almost everyday... except when sore. Every now and then she get a little pool in her shoulder. She can reach behind hr back and can wash her hair. SHe feels like Objective/Function: Pt still reminds herself to sit with good posture. R shld MMT: flex 4-/5 and abd 4/5, ER 4/5, IR 4/5). R shoulder AROM is functional Plan Plan: Hold Chart X 3 weeks (08-22-2020)... Pt will call and let me know if she feels she is still progressing or not and needs to come in for PT. Goals Goal 1:: I HEP Goal Time Frame: 4-6 Weeks Goal Progress: Goal Met Goal 2:: Increase R shoulder AROM to full AROM painfree Goal Time Frame: 4-6 Weeks Goal Progress: Goal Met Goal 3:: Increase R shoulder stretgth by 1/2 muscle grade (at time of eval: R shld MMT: flex and abd 3+/5, ER 4-/5, IR 4/5). Goal Time Frame: 4-6 Weeks Goal Progress: Progressing Goal 4:: Sit/stand with upright posture with scapular retraction during therapy sessions Goal Time Frame: 4-6 Weeks Goal Progress: Progressing Anticipated Interventions Patient/Client Instruction: Educate patient on: Condition, Plan of Care For the Purpose of:: To decrease pain, To decrease swelling/inflammation, To increase ROM, To improve nutrient delivery to tissue, To improve muscle performance and motor function, To improve ability to perform ADL's, To increase tolerance to activity/condition/position, To improve health of tissue, To decrease soft tissue restriction, To increase flexibility/ROM Therapeutic Exercise to Include: Strength training, Postural training, Flexibilty training, Passive ROM, Active ROM, Scapular Strength/Stabilization For the Purpose of:: To decrease pain, To decrease swelling/inflammation, To increase ROM, To improve nutrient delivery to tissue, To improve muscle performance and motor function, To improve ability to perform ADL's, To increase tolerance to activity/condition/position, To improve ability of physical actions for home/community/work/leisure, To improve health of tissue, To decrease soft tissue restriction, To increase flexibility/ROM Manual Therapy Techniques to Include: Passive ROM For the Purpose of:: To increase ROM, To improve nutrient delivery to tissue Cryotherapy (ice pack, ice massage): Yes Ultrasound (thermal/non thermal): Yes For the Purpose of:: To decrease pain, To decrease swelling/inflammation, To increase ROM, To improve nutrient delivery to tissue Please do not hesitate to contact me at [phone] by phone or if you have questions or concerns regarding this new plan of care! Sincerely, Luma Burden, MPT
--- NOTE | 2020-12-06 11:55 | HP.PTDCSUM ---
It has been my pleasure to treat ROBERTO KIRK referred by Dr. Kassi Godoy DO, with the diagnosis of R shoulder pain for a total of 9 visit(s). Discharge Date: 12/06/20 Please see the following information for a summary of their discharge status. Subjective: Pt feels better and thinks that the exercises and PT have been working. Last week she took is slow cause she was sore from harder workout. She is back to normal today. She is doing her HEP almost everyday... except when sore. Every now and then she get a little pool in her shoulder. She can reach behind hr back and can wash her hair. SHe feels like R shoulder pain Pain Intensity (Out of 10): 2 % Improvement: 95 Objective/Function: Pt still reminds herself to sit with good posture. R shld MMT: flex 4-/5 and abd 4/5, ER 4/5, IR 4/5). R shoulder AROM is functional Goal 1:: I HEP Goal Progress: Goal Met Goal 2:: Increase R shoulder AROM to full AROM painfree Goal Progress: Goal Met Goal 3:: Increase R shoulder stretgth by 1/2 muscle grade (at time of eval: R shld MMT: flex and abd 3+/5, ER 4-/5, IR 4/5). Goal Progress: Progressing Goal 4:: Sit/stand with upright posture with scapular retraction during therapy sessions Goal Progress: Progressing Plan: Hold Chart X 3 weeks (08-22-2020)... Pt will call and let me know if she feels she is still progressing or not and needs to come in for PT. Pt did not call back and assumed she is doing well. Discharge Comments: DC PT to HEP If there are questions or concerns regarding this patient's physical therapy, please feel free to call me at [phone]. Thank you for the referral of this patient. Sincerely, Luma Burden, MPT Balance/Gait/Functional tests - Balance/Special Test Scores Quick DASH Score: 18.1800
== END 2020-08-01 19:00 | disposition home or self-care (01) ==
LOC: PT 09:30
PROVIDERS: PCP Internal Medicine; Referring Provider Internal Medicine; Visit Provider Internal Medicine
DX: M25.511 Pain in right shoulder (principal)
CPT/HCPCS: 97110; 97161; 97530

== ENCOUNTER → 2020-10-13 13:29 | Outpatient (CLI) | payer MEDICARE, OTHER, SELFPAY ==
--- NOTE | 2020-10-13 13:31 | BI_ITS ---
MAMMOGRAPHY - BILATERAL SCREENING REASON FOR EXAM: Female, 70 years old. Routine annual screening examination. PERTINENT HISTORY: Non-contributory. TECHNIQUE: Digital bilateral breast maira (3D mammographic acquisition) in the CC and MLO projections. 2-D mediolateral oblique (MLO) and craniocaudad (CC) views of both breasts were obtained. CAD: Full Field Digital Mammography with Computer Added Detection was performed. COMPARISON: Comparison is made with prior study dated 09/30/2019 and 06/17/2018. FINDINGS: Breast Composition: There are scattered areas of fibroglandular density. There are no dominant masses or suspicious calcifications. Stable 1 cm well-defined nodule in the slightly inferior medial aspect of the left breast. This most likely represents a small benign appearing lymph node. No other significant abnormalities are identified. There has been no significant change since the prior study. BI/SCRN MAMM (CAD)W/MAIRA BILAT IMPRESSION: Stable bilateral screening mammogram. Yearly follow-up mammogram recommended. (A) ASSESSMENT CATEGORY: BIRADS Category 2: Benign. A letter regarding these results will be sent to the patient by the facility within 30 days. Approximately 10% of breast cancers are not detected by mammography. A normal mammogram should not delay biopsy of a clinically suspicious abnormality. [id number] Electronically Signed: Nixon Ambrocio MD at 14:50 EDT , Service support ,
== END ==
PROVIDERS: PCP Internal Medicine; Referring Provider Internal Medicine; Visit Provider Internal Medicine
DX: Z12.31 Encounter for screening mammogram for malignant neoplasm of breast (principal)
CPT/HCPCS: 77063; 77067

== ENCOUNTER 2021-03-28 06:07 | Outpatient (CLI) | payer MEDICARE, OTHER, SELFPAY ==
--- NOTE | 2021-03-28 18:01 | STRESSREP ---
Stress Test Report Exercise my cardial perfusion stress test. 71-year-old lady with a history of chest pain and coronary artery disease. Stress protocol: Resting EKG demonstrates normal sinus rhythm with a rate of 66 bpm normal intervals are noted resting blood pressure is 140/72 mmHg. The patient exercised according to regular Dhaval protocol for total duration of 6 minutes and 30 seconds. The maximum heart rate attained was 148 bpm which was 98% of max impact at heart rate the maximum workload was 8.5 metabolic equivalents. At rest there were no ST or T wave changes noted to suggest ischemia and at peak exercise upsloping ST changes were noted with did not meet the criteria for ischemia. During recovery there was mildly downsloping ST depression noted in the inferior lateral leads less than 1 mm. The peak blood pressure was 168/94 mmHg. No clinical angina was noted the test was terminated due to dyspnea. Myocardial perfusion protocol. 10.9 mCi of technetium 99m sestamibi was injected at rest. Patient exercised according to regular Dhaval protocol for 6-1/2 minutes and at peak exercise 32.4 mCi of technetium 99m sestamibi was injected stress images were obtained stress and rest images were reconstructed and compared in the short axis vertical long and horizontal long axis. Gated images were also obtained. Perfusion SPECT analysis: Review of the stress images demonstrate normal uptake of tracer noted in all areas of the myocardium. The resting images similarly demonstrate normal uptake of tracer noted in all areas of the myocardium. No areas of reversibility are noted to suggest ischemia and no previous infarct is noted. Gated SPECT analysis: The gated ejection fraction is 78%. Conclusion: Normal exercise myocardial perfusion stress test at a moderate workload. Preserved ejection fraction.
== END 2021-03-28 23:59 | disposition short-term general hospital (02) ==
PROVIDERS: PCP Internal Medicine; Referring Provider Physician Assistant Medical; Visit Provider Physician Assistant Medical
DX: I25.10 Atherosclerotic heart disease of native coronary artery without angina pectoris (principal)
CPT/HCPCS: 78452; 93017; A9500; A4216

== ENCOUNTER → 2021-10-17 | Outpatient (CLI) | payer MEDICARE, OTHER, SELFPAY ==
--- NOTE | 2021-10-17 11:39 | CT_ITS ---
INDICATION: LLQ PAIN EXAMINATION: CT ABDOMEN AND PELVIS WITH CONTRAST - CT Abdomen And Pelvis W/ Contrast Injection TECHNIQUE: Helically acquired images were obtained of the abdomen and pelvis following IV contrast. A radiation dose optimization technique was used for this scan. IV Contrast dosage and agent: 100 mL of [id number] Oral contrast: GASTROGRAFIN. COMPARISON: 02/07/2020.. FINDINGS: LOWER CHEST: Lung bases are unremarkable. No cardiomegaly or pericardial effusion. LIVER: Homogeneous. No focal mass. Mild prominence of the portal vein is visualized, this demonstrates no significant change in comparison to the prior study. GALLBLADDER AND BILIARY TREE: No calcified gallstones. No gallbladder distension or wall edema. No intra- or extrahepatic biliary ductal dilation. PANCREAS: No focal cystic or solid mass. SPLEEN: Normal size without focal cystic or solid mass. Splenule is visualized in the hilum of the spleen the largest of which measures 1.8 cm. ADRENAL GLANDS: No nodules. KIDNEYS AND URETERS: Normal renal size and position. No hydronephrosis. PERITONEUM: No ascites or free air. No other fluid collection. BOWEL: The appendix is visualized and is unremarkable. No stomach or bowel distension. Multiple areas of bowel wall thickening visualized most prominent in the rectosigmoid but no well-defined mass is seen. No focal inflammatory change. LYMPH NODES: No enlarged mesenteric or retroperitoneal lymph nodes. VESSELS: Aorta is non-dilated. URINARY BLADDER: Unremarkable. REPRODUCTIVE ORGANS: The uterus is surgically absent, bilateral ovaries are visualized and are unremarkable. No pelvic masses. ABDOMINAL WALL: Focal areas of stranding visualized in the anterior abdominal wall at the level of the umbilicus. No discrete abdominal or pelvic wall hernia. BONES: No lytic or blastic abnormality. Degenerative bone changes seen. CT/Abdomen/Pelvis WITH Contrast IMPRESSION: With scattered areas of large bowel wall thickening visualized but no prominent underlying masses are seen, no stranding of the peritoneal fat planes. Focal areas of for anterior abdominal wall stranding visualized at the level of the umbilicus. Degenerative bone changes seen. Electronically Signed: Shan Boothe MD at 15:05 EDT Reading Location ID and State: [facility] / [place] Tel , Service support ,
[2021-10-17 14:26] LABS: CREATININE FINGERSTICK < 0.9 mg/dL (0.55-1.02); EGFR FINGERSTICK > 60.0000 mL/min (>60)
== END | disposition home or self-care (01) ==
LOC: CT 11:37
PROVIDERS: PCP Internal Medicine; Referring Provider Nurse Practitioner Family; Visit Provider Nurse Practitioner Family
DX: R10.32 Left lower quadrant pain (principal)
CPT/HCPCS: 74177; Q9967

== ENCOUNTER 2021-10-23 04:16 | Emergency (ER) | payer MEDICARE, OTHER, SELFPAY ==
[2021-10-23 04:17] VITALS: PULSE 74; RESP 17; TEMP 36.6; O2SAT 94; BMI 27.6
--- NOTE | 2021-10-23 04:50 | ED.VIS.GI ---
HPI HPI - GI History of Present Illness Chief Complaint: Abd Pain Informant: patient Abdominal Pain/Flank Pain Onset: Weeks Context: Gradual Onset Timing: Continuous Quality: Aching, Dull and Sharp Location: LUQ and LLQ Worsened by: Food Relieved by: Nothing Nausea/Vomiting/Emesis GI Symptom: Positive for Nausea and Vomiting Quality: Positive for Nonbilious; Negative for Blood streaks, Coffee ground or Hematemesis Diarrhea/Melena/Hematochezia GI Symptom: Positive for Diarrhea; Negative for Melena or Hematochezia Associated Symptoms Associated Symptoms: Negative for Dysuria, Frequency or Hematuria Narrative Narrative: Patient presents with abdominal pain that has been constant for the past few weeks. Patient states she was recently diagnosed with diverticulitis and is on Cipro and Flagyl for this. Patient states her pain is not improving after 6 days of Cipro and Flagyl. Patient states her pain is a dull ache but is sharp at times. Patient states it is mainly over the left side of her abdomen. Patient admits to decreased appetite. Patient states she is afraid to eat because she thinks it will make her pain worse to some nausea and dry heaves. Patient denies any hematemesis or coffee-ground emesis. Patient does admit to some loose diarrhea. Patient denies any melena or hematochezia. Patient denies any urinary complaints. Patient states her pain does radiate into her back. [facility] Medical History (Updated 10/23/21 @ 07:[address] Miguel Angel Gonsales, DO) Atherosclerosis of coronary artery of resighini heart without angina pectoris Essential (primary) hypertension Hyperlipidemia Hypothyroidism Hypothyroidism Lipoprotein deficiency Type 2 diabetes mellitus Type 2 diabetes mellitus Home Medications aspirin 81 mg chewable tablet 81 mg PO DAILY@0800 09/16/14 [History Last Taken Unknown] levothyroxine 88 mcg tablet 88 mcg PO DAILY 09/16/14 [History Last Taken Unknown] metoprolol succinate 25 mg tablet,extended release 24 hr 25 mg PO DAILY 09/16/14 [History Last Taken 09/19/14] [id number]-epa-fish oil-D3 300 mg-1,200 mg-1,000 unit capsule 1 ea PO DAILY 09/16/14 [History Last Taken Unknown] metformin 500 mg tablet,extended release 24 hr 1,000 mg PO BID 07/07/19 [History Last Taken Unknown] Immunomax PO DAILY 07/08/19 [History Last Taken Unknown] ondansetron 4 mg disintegrating tablet 4 mg PO Q8H PRN PRN Nausea #10 tabs 02/07/20 [Rx Last Taken Unknown] rosuvastatin 40 mg tablet 40 mg PO DAILY #90 tabs 10/18/20 [Rx Last Taken Unknown] cholecalciferol (vitamin D3) 1,250 mcg (50,000 unit) capsule 1,250 mcg PO QWEEK 03/14/21 [History Last Taken Unknown] lorazepam 0.5 mg tablet 0.5 mg PO DAILY PRN 03/14/21 [History Last Taken Unknown] losartan 25 mg tablet 25 mg PO DAILY #90 tabs 07/13/21 [Rx Last Taken Unknown] hydrocodone-acetaminophen 5-325mg 5mg-325mg 1 tab PO Q6H PRN PRN Pain 3 days #10 TABLETS 10/23/21 [Rx Last Taken Unknown] Allergy/AdvReac Type Severity Reaction Status Date / Time LISBETH Inhibitors AdvReac cough Verified 03/14/21 09:21 Family History Father Myocardial infarction Sudden cardiac Mother Cancer Sister LBBB (left bundle branch block) Surgical History H/O coronary artery bypass surgery (06/15/07) History of left heart catheterization (09/19/14) History of total hysterectomy History of total hysterectomy with bilateral salpingo-oophorectomy (BSO) Social History Smoking Status: Never smoker alcohol intake: never substance use type: does not use caffeine: Yes Type: tea what type of physical activity do you participate in: walking and other details: tredmill frequency: daily duration: 15-30 minutes/day seatbelt use: always do you feel safe at home: Yes ROS ROS ED Constitutional Constitutional ED: Denies chills or fever(s) Eyes Eyes: Denies blurry vision or change in vision ENT ENT ED: Denies rhinorrhea or sore throat Cardiovascular Cardiovascular: Denies chest pain or palpitations Respiratory/Chest Respiratory/Chest: Denies cough or dyspnea Gastrointestinal Gastrointestinal: Reports abdominal pain, diarrhea, nausea and vomiting Genitourinary Genitourinary ED: Denies dysuria or hematuria Musculoskeletal Musculoskeletal: Reports back pain and neck pain Integumentary Reports rash; Denies abscess Neurologic Neurologic: Denies headache(s) or weakness Allergic/Immunologic Allergic/Immunologic ED: Denies mouth swelling or urticaria EXAM Physical Exam Const Vital Signs: 10/23/21 04:17 Temperature 97.9 F Temperature Source Temporal Pulse Rate 74 Respiratory Rate 17 Pulse Ox 94 Oxygen Delivery Method Room Air Positive well nourished and well developed General Appearance ED: well developed HEENT Reports moist mucous membranes Neck supple and no JVD Resp normal respiratory effort and clear to auscultation bilaterally Cardio regular rate, regular rhythm and no murmurs GI normal to inspection, nondistended, normoactive bowel sounds Palpation: soft and tender LLQ; Negative for guarding or rebound tenderness present Extremity normal to inspection General Extremety ED: Negative for edema or tenderness General Extremity: Negative for edema Neuro oriented x3, CN's II-XII intact bilaterally and no sensory deficits noted Sensorium / Orientation: alert Motor Exam: strength 5/5 throughout Psych mental status grossly normal Skin no rashes or lesions noted MDM MDM MDM Narrative Medical decision making narrative: Patient was given IV fluids, morphine, and Zofran. CBC was within normal limits. Comprehensive metabolic profile showed a creatinine of 1.61 and a BUN of 15. This was consistent with prior results. Lipase was normal. Urinalysis does not show any evidence of urinary tract infection or hematuria. CT scan of the abdomen pelvis was obtained. There is no acute abnormality noted. This was interpreted by the radiologist and reviewed by myself. Patient was advised of her findings. Patient was instructed to stop taking her antibiotics. Patient was given a prescription for a short course of [place]. Patient was instructed to follow-up with her primary care physician in 5 to 7 days. Patient was instructed to start with a liquid diet and advance as tolerated. Patient understood and was agreeable with the plan. All questions were answered. Lab Data Attestation: I reviewed the patient's lab results. Labs: Laboratory Results - last 24 hr 10/23/21 10/23/21 10/23/21 04:30 04:30 05:35 WBC 7.0 RBC 4.91 Hgb 13.4 Hct 42.7 MCV 87.0 MCH 27.3 MCHC 31.4 L RDW Std Deviation 45.6 H RDW Coeff of Nol[place] 14.3 Plt Count 110 L MPV 10.0 Immature Gran % (Auto) 0.400 Neut % (Auto) 82.4 H Lymph % (Auto) 5.0 L [place] % (Auto) 8.5 Eos % (Auto) 3.3 Baso % (Auto) 0.4 Absolute Neuts (auto) 5.8 Absolute Lymphs (auto) 0.35 L Nucleated RBC % 0 Platelet Estimate SLT DEC Sodium 140 Potassium 3.3 L Chloride 106 Carbon Dioxide 25.0 Anion Gap 9 BUN 15 Creatinine 1.61 H Estim Creat Clear Calc 25.72 Est GFR (MDRD) Af Amer 41 L Est GFR (MDRD) Non-Af 34 L BUN/Creatinine Ratio 9.3 L Glucose 127 H Calcium 8.9 Total Bilirubin 0.70 AST 19 ALT 20 Alkaline Phosphatase 58 Total Protein 6.7 Albumin 3.3 Globulin 3.4 Albumin/Globulin Ratio 1.0 Lipase 189 Urine Color Yellow Urine Clarity Clear Urine pH 5.0 Ur Specific [place] 1.020 Urine Protein 100 H Urine Glucose (UA) Normal Urine Ketones 50 H Urine Occult Blood 50 H Urine Nitrite Negative Urine Bilirubin Negative Urine Urobilinogen Normal Ur Leukocyte Esterase 100 H Urine RBC 0-5 SEEN Urine WBC 0-5 SEEN Ur Squamous Epith Cells 0-5 SEEN Amorphous Sediment 1+ Urine Bacteria 2+ Hyaline Casts 0-5 SEEN Urine Mucus 0 SEEN Radiography Diagnostic Testing: Clinical Impression(s) from Imaging Studies Abdomen CT 10/23/21 05:22 IMPRESSION: No acute findings in the abdomen or pelvis. Electronically Signed: Santos Lockwood MD at 7:11 EDT , Discharge Plan Triage Chief Complaint: Abd Pain ED Provider: Miguel Angel Gonsales Dx/Rx/DC Orders Clinical Impression: Abdominal pain, Essential (primary) hypertension Instructions: ED Abdominal Pain Unkn Cause Fem Prescriptions: New hydrocodone-acetaminophen [hydrocodone-acetaminophen] 1 TABLET tablet 1 tab PO Q6H PRN PRN (Reason: Pain) 3 Days Qty: 10 0RF No Action metformin 500 mg tablet extended release 24 hr 1,000 mg PO BID Label Comments: TAKE 2 TABLETS BY MOUTH TWICE A DAY Immunomax PO DAILY cholecalciferol (vitamin D3) 1,250 mcg (50,000 unit) capsule 1,250 mcg PO QWEEK lorazepam 0.5 mg tablet 0.5 mg PO DAILY PRN levothyroxine 88 MCG tablet 88 mcg PO DAILY aspirin 81 MG tablet,chewable 81 mg PO DAILY@0800 metoprolol succinate 25 MG tablet 25 mg PO DAILY [id number]-epa-fish oil-D3 1 EACH capsule 1 ea PO DAILY ondansetron 4 MG tablet 4 mg PO Q8H PRN PRN (Reason: Nausea) Qty: 10 0RF rosuvastatin 40 mg tablet 40 mg PO DAILY Qty: 90 3RF losartan 25 mg tablet 25 mg PO DAILY Qty: 90 3RF Primary Care Provider: Kassi Godoy Referrals: Kassi Godoy DO [Primary Care Provider] - 3-5 Days Disposition Disposition: Home, Self Care
[2021-10-23 05:01] LABS: Absolute Lymphocyte Count 0.35 X10^3/uL (0.83-4.51); Absolute Neutrophil Count 5.8 X10^3/uL (2.0-7.7); Basophil# 0.03 X10^3/uL; Basophil% 0.4 % (0-1); Differential Indicated SCAN CRITERIA MET; Eosinophil# 0.23 X10^3/uL; Eosinophils% 3.3 % (0-5); Hematocrit 42.7 % (37-47); Hemoglobin 13.4 g/dL (12.0-15.0); Lymphocyte # 0.35 X10^3/ul (0.83-4.51); Mean Corp Hgb Conc 31.4 g/dL (32-36); Mean Corpuscular Hgb 27.3 pg (27.0-32.0); Monocyte% 8.5 % (0-10); NRBC Flagged by Analyzer 0 % (0-5); Neutrophil # 5.79 X10^3/uL (2.7-7.7); Neutrophil % 82.4 % (47-70); POSITIVE DIFFERENTIAL YES; Platelet Count 110 K/mm3 (150-450); RBC Distribution Width CV 14.3 % (11.6-14.6); RBC Distribution Width SD 45.6 fl (35.1-43.9); Red Blood Count 4.91 M/mm3 (4.2-5.4)
[2021-10-23] MEDS: 0.9% Normal Saline 1,000 ML 1000 ML IV (05:06)
[2021-10-23] MEDS: Morphine 4 MG/ML Syringe IV (05:06)
[2021-10-23] MEDS: Ondansetron 4 MG/2 ML Vial IV (05:06)
[2021-10-23 05:17] LABS: Platelet Estimate SLT DEC (ADEQ)
[2021-10-23 05:19] LABS: AST(SGOT) 19 U/L (15-37); Alanine Aminotransfer ALT/SGPT 20 U/L (13-56); Albumin, Serum 3.3 g/dL (3.2-5.0); Alkaline Phosphatase 58 U/L (45-117); Anion Gap 9 (5-15); BUN 15 mg/dL (7-18); BUN/Creat Ratio 9.3 RATIO (10-20); Calcium,Total 8.9 mg/dL (8.5-10.1); Chloride 106 mmol/L (98-107); Creatinine, Serum 1.61 mg/dL (0.55-1.02); EST Glomerular Filtration Rate 34 mL/min (>60); Est Glom Filt Rate - Afr Amer 41 mL/min (>60); Estimated Creatinine Clearance 25.72 ml/min; Globulin 3.4 g/dL (2.2-4.2); Glucose 127 mg/dL (74-106); Lipase 189 U/L (73-393); Potassium 3.3 mmol/L (3.5-5.1); Protein, Total 6.7 g/dL (6.4-8.2); Sodium Level 140 mmol/L (136-145)
--- NOTE | 2021-10-23 05:22 | CT_ITS ---
EXAM: CT ABDOMEN AND PELVIS WITHOUT INTRAVENOUS CONTRAST CLINICAL INDICATION: Abdominal pain TECHNIQUE: Helically acquired images were obtained of the abdomen and pelvis without intravenous contrast. This CT exam was performed using one or more of the following dose reduction techniques: automated exposure control, adjustment of the mA and/or kV according to patient size, and/or use of iterative reconstruction technique. This report was created using [employer] report generation technology. COMPARISON: 10/17/2021 and 02/07/2020 FINDINGS: LOWER THORAX: Unremarkable. Lung bases are clear. No cardiomegaly. No significant pericardial effusion. ABDOMEN: LIVER: Unremarkable. Homogeneous. GALLBLADDER AND BILE DUCTS: Unremarkable. No calcified gallstones. No gallbladder distention or wall edema. No intra- or extrahepatic biliary ductal dilation. PANCREAS: Unremarkable. No focal cystic mass. SPLEEN: Benign calcified granulomas in the spleen. ADRENALS: Unremarkable. No nodules. KIDNEYS AND URETERS: Unremarkable. Normal renal size and position. No hydronephrosis. STOMACH AND BOWEL: Diverticular disease of the colon but no diverticulitis. No stomach or bowel distention. PELVIS: APPENDIX: The appendix is normal. BLADDER: Unremarkable. REPRODUCTIVE: Hysterectomy. ABDOMEN and PELVIS: INTRAPERITONEAL SPACE: Unremarkable. No ascites or other fluid collection. No free air. BONES/JOINTS: Diffuse degenerative changes of the spine. No suspicious lytic or blastic abnormality. SOFT TISSUES: Stable subcutaneous stranding in the periumbilical region. No change in nearly 2 years. No discrete abdominal or pelvic wall hernia. VASCULATURE: Atherosclerotic changes of the abdominal aorta but no aneurysm. LYMPH NODES: Unremarkable. No enlarged lymph nodes. CT/Abdomen/Pel W ORAL Cont Only IMPRESSION: No acute findings in the abdomen or pelvis. Electronically Signed: Santos Lockwood MD at 7:11 EDT ,
[2021-10-23 05:44] LABS: Mucous, Urine 0 SEEN /hpf (<or=2+)
[2021-10-23 05:51] LABS: Color, Urine Yellow (Yellow); Glucose, Dipstick Normal (Normal); Ketone-Dipstick 50 mg/dl (Negative); Leukocyte Esterase-Dipstick 100 /ul (Negative); Nitrite-Dipstick Negative (Negative); Occult Blood-Urine 50 /ul (Negative); Protein-Dipstick 100 mg/dl (Negative); Urine Bilirubin Dipstick Negative (Negative); Urine Clarity Clear (Clear); Urine Urobilinogen Normal (Normal)
[2021-10-23 06:06] LABS: Amorphous Sediment 1+; Bacteria 2+ /hpf (None Seen); Hyaline Cast 0-5 SEEN /lpf (0-5); Red Blood Cells-Urine 0-5 SEEN /hpf (0-5); Squamous Epithelial Cells - UA 0-5 SEEN /hpf (5-10); White Blood Cells 0-5 SEEN /hpf (0-5)
[2021-10-23 07:38] VITALS: BP 118/65; PULSE 74; RESP 18; O2SAT 91
== END 2021-10-23 07:40 | disposition home or self-care (01) ==
PROVIDERS: Emergency Provider Emergency Medicine; PCP Internal Medicine; Visit Provider Emergency Medicine
DX: R10.12 Left upper quadrant pain (principal); E11.9 Type 2 diabetes mellitus without complications; R10.32 Left lower quadrant pain; I25.10 Atherosclerotic heart disease of native coronary artery without angina pectoris; I10 Essential (primary) hypertension; E78.5 Hyperlipidemia, unspecified; E03.9 Hypothyroidism, unspecified; Z90.710 Acquired absence of both cervix and uterus; Z90.722 Acquired absence of ovaries, bilateral; Z95.1 Presence of aortocoronary bypass graft; Z79.84 Long term (current) use of oral hypoglycemic drugs; Z79.82 Long term (current) use of aspirin; Z79.899 Other long term (current) drug therapy
CPT/HCPCS: 74176; 80053; 81001; 83690; 85025; 96361; 96374; 96375; 99283; J7030; J2405

== ENCOUNTER → 2021-10-24 | Outpatient (CLI) | payer MEDICARE, OTHER, SELFPAY ==
--- NOTE | 2021-10-24 14:48 | CT_ITS ---
STUDY: CT ABDOMEN AND PELVIS WITHOUT CONTRAST REASON FOR EXAM: Female, 71 years old. HEMATURIA. Left flank pain and left lower abdominal pain. RADIATION DOSAGE (If Supplied By Facility): CTDIvol = ( 9.87 ) mGy, DLP = ( 476.53 ) mGycm TECHNIQUE: Transaxial images were obtained from the dome of the diaphragm to the symphysis pubis without oral contrast, and without intravenous contrast. Sagittal and coronal images were reconstructed. Individualized dose optimization techniques were used for this CT. COMPARISON: Comparison is made with prior study dated 10/23/2021. FINDINGS: Minimal scarring at the lung bases. Coronary artery calcification. Normal liver. Normal gallbladder and extrahepatic biliary system. There are multiple benign calcified granulomata of the spleen. Normal pancreas. Normal bilateral adrenal glands. Normal right kidney. Normal left kidney. Normal visualized stomach. Normal small intestine. There are multiple colonic diverticula consistent with diverticulosis. The appendix is visualized and appears normal. There is scattered atherosclerotic calcification of the abdominal aorta, without a demonstrated aneurysm. Normal inferior vena cava. Normal retroperitoneum. Normal urinary bladder. There is absence of the uterus consistent with a prior hysterectomy. Increased markings in the subcutaneous tissues overlying the anterior abdominal wall bilaterally. There are diffuse degenerative changes of the visualized lumbar spine. CT/Abdomen/Pelvis without Cont IMPRESSION: Calcified splenic granulomas. Sigmoid diverticulosis. No evidence of a ureteral obstruction. Electronically Signed: Nixon Ambrocio MD at 15:34 EDT ,
== END | disposition home or self-care (01) ==
LOC: CT 14:45
PROVIDERS: PCP Internal Medicine; Referring Provider Internal Medicine; Visit Provider Internal Medicine
DX: R31.29 Other microscopic hematuria (principal)
CPT/HCPCS: 74176

== ENCOUNTER → 2021-10-29 | Outpatient (CLI) | payer MEDICARE, OTHER, SELFPAY ==
--- NOTE | 2021-10-29 14:10 | US_ITS ---
STUDY: ULTRASOUND OF THE FEMALE PELVIS - COMPLETE REASON FOR EXAM: Female, 71 years old. PAIN -- LLQ PAIN X 1 MONTH -- PATIENT IS ON CIPRO FOR DIVERTICILITIS AND PAIN HAS GREATLY IMPROVED LMP: TECHNIQUE: Transabdominal TECHNICAL QUALITY: Adequate. COMPARISON: Comparison is made with prior study dated 05/23/2018. FINDINGS: The patient is status post hysterectomy. The right ovary is non-visualized. The left ovary is visualized. The left ovary measures 2.9 cm x 2.2 cm x 1.9 cm. There is no left ovarian cyst or ovarian mass. There is no visualized left adnexal mass or complex lesion. There is normal arterial and normal venous vascularity. There is no fluid in the cul-de-sac. The pre void volume of the bladder was 65.7 ml. US/Pelvic (Non ) IMPRESSION: Status post hysterectomy. Electronically Signed: Nixno Ambrocio MD at 15:29 EDT ,
== END | disposition home or self-care (01) ==
LOC: US 14:09
PROVIDERS: PCP Internal Medicine; Referring Provider Internal Medicine; Visit Provider Internal Medicine
DX: R10.2 Pelvic and perineal pain (principal); Z90.710 Acquired absence of both cervix and uterus
CPT/HCPCS: 76856

== ENCOUNTER → 2022-02-05 | Outpatient (CLI) | payer MEDICARE, OTHER, SELFPAY ==
--- NOTE | 2022-02-05 08:17 | BI_ITS ---
MAMMOGRAPHY - BILATERAL SCREENING REASON FOR EXAM: Female, 72 years old. Routine annual screening examination. PERTINENT HISTORY: Non-contributory. TECHNIQUE: Digital bilateral breast maira (3D mammographic acquisition) in the CC and MLO projections. 2-D mediolateral oblique (MLO) and craniocaudad (CC) views of both breasts were obtained. CAD: Full Field Digital Mammography with Computer Added Detection was performed. COMPARISON: Comparison is made with prior study 10/13/2020 and 09/30/2019. FINDINGS: Breast Composition: There are scattered areas of fibroglandular density. There are no dominant masses or suspicious calcifications. Stable 9.5 mm x 4.6 mm well-defined nodule in the inferior medial aspect of the left breast. Stable small benign-appearing bilateral axillary lymph nodes. No other significant abnormalities are identified. There has been no significant change since the prior study. BI/SCRN MAMM (CAD)W/MAIRA BILAT IMPRESSION: Stable bilateral screening mammogram. Yearly follow-up mammogram recommended. (A) ASSESSMENT CATEGORY: BIRADS Category 2: Benign. A letter regarding these results will be sent to the patient by the facility within 30 days. Approximately 10% of breast cancers are not detected by mammography. A normal mammogram should not delay biopsy of a clinically suspicious abnormality. [id number] Electronically Signed: Nixon Ambrocio MD at 11:22 EST ,
== END | disposition home or self-care (01) ==
LOC: OPBI 08:16
PROVIDERS: PCP Internal Medicine; Visit Provider Internal Medicine
DX: Z12.31 Encounter for screening mammogram for malignant neoplasm of breast (principal); N63.24 Unspecified lump in the left breast, lower inner quadrant
CPT/HCPCS: 77063; 77067

== ENCOUNTER → 2022-02-07 | Outpatient (CLI) | payer MEDICARE, OTHER, SELFPAY ==
--- NOTE | 2022-02-07 10:49 | RAD_ITS ---
STUDY: X-RAY - PELVIS AND LEFT HIP REASON FOR EXAM: Female, 72 years old. PAIN IN HIP TECHNIQUE: XR Hip Unilateral with Pelvis when performed; 2-3 Views COMPARISON: None. FINDINGS: There is a non-specific bowel gas pattern. Normal visualized soft tissue structures. There are multiple calcified phleboliths. There are degenerative changes of the lumbar spine. Normal bilateral iliac wings, sacroiliac joints and visualized sacrum. Normal bilateral superior and inferior pubic rami. Normal pubic symphysis. Normal bilateral ischial tuberosities. Normal visualized femoral head. Normal acetabulum. Normal hip joint. RAD/HIP, UNI W/ Pelvis 2-3 Views IMPRESSION: No acute findings. Electronically Signed: Santos Snyder MD at 19:49 EST ,
== END | disposition home or self-care (01) ==
LOC: MTRAD 10:48
PROVIDERS: PCP Internal Medicine; Referring Provider Internal Medicine; Visit Provider Internal Medicine
DX: M25.552 Pain in left hip (principal)
CPT/HCPCS: 73502

== ENCOUNTER → 2022-10-29 | Outpatient (CLI) | payer MEDICARE, OTHER, SELFPAY ==
--- NOTE | 2022-10-29 10:50 | BD_ITS ---
STUDY: DUAL ENERGY X-RAY ABSORPTIOMETRY / DXA REASON FOR EXAM: Female, 72 years old. [id number] TECHNIQUE: Bone Mineral Density (BMD) measurements of lumbar spine and bilateral hips were obtained. COMPARISON: Comparison is made with prior study dated October 28, 2019. FINDINGS: Lumbar Spine (L1-L4): g/cm2 (0.906) / T-score (-1.3) / Z-score (0.9) Findings are suggestive of osteopenia with a low fracture risk. Left Femur Total: g/cm2 (0.931) / T-score (-0.1) / Z-score (1.5) Left Femoral Neck: g/cm2 (0.793) / T-score (-0.5) / Z-score (1.4) Right Femur Total: g/cm2 (0.903) / T-score (-0.3) / Z-score (1.3) Right Femoral Neck: g/cm2 (0.794) / T-score (-0.5) / Z-score (1.4) The T-Scores on the most recent prior examination were: Lumbar Spine (L1-L4): There has been worsening of bone density since the previous examination. Left Femur Total: which represents a worsening of 5%. Right Femur Total: which represents a worsening of 5.8%. BD/Dexa Bone Density Study IMPRESSION: The patient is considered osteopenic as outlined below according to World Tutu Organization (WHO) criteria with a low fracture risk. There has been worsening of bone density since the previous examination. Reference Information: The T-score is the number of standard deviations above or below the standard which is normal for young adults at their peak bone mineral density. The World Health Organization (WHO) interprets the T-scores as follows: Above -1 Normal bone density Between -1 and -2.5 Osteopenia Equal to / or below -2.5 Osteoporosis As a practical clinical guideline, osteopenia may be graded as follows: Mild -1 through -1.5 Moderate -1.6 through -2.0 Severe -2.1 through -2.4 The Z-score is the number of standard deviations above or below age-matched controls. A Z-score of less than -1.5 would be considered abnormal. References: 1. NIH Osteoporosis and Related Bone Diseases www osteo.org 2. International Society for Clinical Densitometry www iscd.org 3. National Osteoporosis Foundation www nof.org Electronically Signed: Nixon Ambrocio MD at 13:28 EDT ,
== END | disposition home or self-care (01) ==
LOC: OPBD 10:44
PROVIDERS: PCP Internal Medicine; Referring Provider Internal Medicine; Visit Provider Internal Medicine
DX: Z78.0 Asymptomatic menopausal state (principal)
CPT/HCPCS: 77080

== ENCOUNTER → 2023-02-07 | Outpatient (CLI) | payer MEDICARE, OTHER, SELFPAY ==
--- NOTE | 2023-02-07 07:59 | BI_ITS ---
MAMMOGRAPHY - BILATERAL SCREENING REASON FOR EXAM: Female, 73 years old. Routine annual screening examination. PERTINENT HISTORY: Non-contributory. TECHNIQUE: Digital bilateral breast maira (3D mammographic acquisition) in the CC and MLO projections. 2-D mediolateral oblique (MLO) and craniocaudad (CC) views of both breasts were obtained. CAD: Full Field Digital Mammography with Computer Added Detection was performed. COMPARISON: Comparison is made with prior study dated February 05, 2022 and October 13, 2020. FINDINGS: Breast Composition: There are scattered areas of fibroglandular density. There are no dominant masses or suspicious calcifications. Stable fat-containing 9.5 mm x 4.6 mm well-defined nodule in the inferior medial aspect of the left breast. This most likely represents a small lymph node. Stable small benign-appearing bilateral axillary lymph nodes. No other significant abnormalities are identified. There has been no significant change since the prior study. BI/SCRN MAMM (CAD)W/MAIRA BILAT IMPRESSION: Stable bilateral screening mammogram. Yearly follow-up mammogram recommended. (A) ASSESSMENT CATEGORY: BIRADS Category 2: Benign. A letter regarding these results will be sent to the patient by the facility within 30 days. Approximately 10% of breast cancers are not detected by mammography. A normal mammogram should not delay biopsy of a clinically suspicious abnormality. [id number] Electronically Signed: Nixon Ambrocio MD at 9:46 EST ,
== END | disposition home or self-care (01) ==
LOC: OPBI 07:57
PROVIDERS: PCP Internal Medicine; Referring Provider Internal Medicine; Visit Provider Internal Medicine
DX: Z12.31 Encounter for screening mammogram for malignant neoplasm of breast (principal)
CPT/HCPCS: 77063; 77067

== ENCOUNTER → 2024-02-09 | Outpatient (CLI) | payer MEDICARE, OTHER, SELFPAY ==
--- NOTE | 2024-02-09 13:18 | BI_ITS ---
MAMMOGRAPHY - BILATERAL SCREENING REASON FOR EXAM: Female, 74 years old. Routine annual screening examination. PERTINENT HISTORY: Non-contributory. TECHNIQUE: Digital bilateral breast maira (3D mammographic acquisition) in the CC and MLO projections. 2-D mediolateral oblique (MLO) and craniocaudad (CC) views of both breasts were obtained. CAD: Full Field Digital Mammography with Computer Added Detection was performed. COMPARISON: Comparison is made with prior study dated February 07, 2023 and February 05, 2022. FINDINGS: Breast Composition: There are scattered areas of fibroglandular density. There are no dominant masses or suspicious calcifications. Stable fat-containing 9.5 mm x 4.6 mm well-defined nodule in the inferior medial aspect of the left breast. Stable small benign-appearing bilateral axillary lymph nodes. No other significant abnormalities are identified. There has been no significant change since the prior study. BI/SCRN MAMM (CAD)W/MAIRA BILAT IMPRESSION: Stable bilateral screening mammogram. Yearly follow-up mammogram recommended. (A) ASSESSMENT CATEGORY: BIRADS Category 2: Benign. A letter regarding these results will be sent to the patient by the facility within 30 days. Approximately 10% of breast cancers are not detected by mammography. A normal mammogram should not delay biopsy of a clinically suspicious abnormality. [id number] Electronically Signed: Nixon Ambrocio MD at 14:11 EST ,
== END | disposition home or self-care (01) ==
LOC: OPBI 13:16
PROVIDERS: PCP Internal Medicine; Referring Provider Internal Medicine; Visit Provider Internal Medicine
DX: Z12.31 Encounter for screening mammogram for malignant neoplasm of breast (principal); Z78.0 Asymptomatic menopausal state
CPT/HCPCS: 77063; 77067

== ENCOUNTER 2024-03-18 20:17 | Emergency (ER) | payer MEDICARE, OTHER, SELFPAY ==
[2024-03-18 20:18] VITALS: BP 167/99; PULSE 77; RESP 16; TEMP 36.7; O2SAT 97; BMI 29.1
[2024-03-18 20:22] VITALS: BP 167/99; PULSE 77; RESP 16; TEMP 36.7; O2SAT 97
--- NOTE | 2024-03-18 20:41 | CT_ITS ---
EXAM: CT ABDOMEN AND PELVIS WITHOUT INTRAVENOUS CONTRAST CLINICAL INDICATION: Kidney Stone TECHNIQUE: Helically acquired images were obtained of the abdomen and pelvis without intravenous contrast. This CT exam was performed using one or more of the following dose reduction techniques: automated exposure control, adjustment of the mA and/or kV according to patient size, and/or use of iterative reconstruction technique. COMPARISON: 10/24/2021 FINDINGS: LOWER THORAX: Unremarkable. Lung bases are clear. No cardiomegaly. No significant pericardial effusion. ABDOMEN: LIVER: Unremarkable. Homogeneous. GALLBLADDER AND BILE DUCTS: Unremarkable. No calcified gallstones. No gallbladder distention or wall edema. No intra- or extrahepatic biliary ductal dilation. PANCREAS: Unremarkable. No focal cystic mass. SPLEEN: There are are splenic granulomas. ADRENALS: Unremarkable. No nodules. KIDNEYS AND URETERS: There is mild left-sided hydronephrosis and hydroureter. There is a 2 mm stone at the left UVJ. Normal renal size and position. STOMACH AND BOWEL: Unremarkable. No stomach or bowel distention. No focal inflammatory change. PELVIS: APPENDIX: No evidence of acute appendicitis. BLADDER: Unremarkable. REPRODUCTIVE: Unremarkable as visualized. No mass. ABDOMEN and PELVIS: INTRAPERITONEAL SPACE: Unremarkable. No ascites or other fluid collection. No free air. BONES/JOINTS: There are degenerative changes in the lumbar spine with disc space narrowing. No suspicious lytic or blastic abnormality. SOFT TISSUES: Unremarkable. No discrete abdominal or pelvic wall hernia. VASCULATURE: Unremarkable. Abdominal aorta is non-dilated. LYMPH NODES: Unremarkable. No enlarged lymph nodes. CT/Abdomen/Pelvis without Cont IMPRESSION: Obstruction of the left collecting system due to a 2 mm stone at the UVJ. There is mild left-sided hydronephrosis and hydroureter. Electronically Signed: Kieran Arzate MD at 21:25 EST ,
--- NOTE | 2024-03-18 20:44 | EDS_ITS ---
HPI History of Present Illness Chief Complaint: Flank Pain Informant: patient, spouse/S.O. and family Narrative Narrative: 74-year-old female presenting to the emergency department chief complaint of abdominal signs of back pain. Patient states that she was feeling pretty good today went to mosque and was practicing the fluid for a . She developed a severe pain left upper abdomen into the flank and then later down towards the pelvis. She had a strong urge to urinate. She states that she had a eventually got so painful she ended up vomiting and that felt better. Mild the pain was increasing. Feeling like he needed to have gas but could not. She states she had this once before and they thought maybe she passed a kidney stone but did not really find anything. She was recently treated for urinary tract infection. She has a history of coronary artery disease and is status post bypass in 2006. The patient does not have any prior abdominal surgeries that she recalls. [facility] Medical History Type 2 diabetes mellitus Hypothyroidism Type 2 diabetes mellitus Atherosclerosis of coronary artery of [place] heart without angina pectoris Essential (primary) hypertension Hyperlipidemia Lipoprotein deficiency Home Medications ?Medication ?Instructions ?Recorded ?Last Taken ?Type aspirin 81 mg chewable tablet 81 mg PO DAILY@0800 09/16/14 Unknown History levothyroxine 88 mcg tablet 88 mcg PO DAILY 09/16/14 Unknown History metoprolol succinate 25 mg 25 mg PO DAILY 09/16/14 09/19/14 History tablet,extended release 24 hr [id number]-epa-fish oil-D3 300 1 ea PO DAILY 09/16/14 Unknown History mg-1,200 mg-1,000 unit capsule metformin 500 mg tablet,extended 1,000 mg PO BID 07/07/19 Unknown History release 24 hr Immunomax PO DAILY 07/08/19 Unknown History cholecalciferol (vitamin D3) 1,250 1,250 mcg PO QWEEK 03/14/21 Unknown History mcg (50,000 unit) capsule lorazepam 0.5 mg tablet 0.5 mg PO DAILY PRN 03/14/21 Unknown History losartan 25 mg tablet 25 mg PO DAILY #90 tabs 07/13/21 Unknown Rx citalopram 10 mg tablet 10 mg PO DAILY 07/14/23 Unknown History rosuvastatin 40 mg tablet 40 mg PO DAILY 07/14/23 Unknown History ondansetron 4 mg disintegrating 4 mg PO Q6H PRN PRN Nausea #15 tabs 03/18/24 Unknown Rx tablet oxycodone-acetaminophen 5 mg-325 1 tab PO Q6H PRN PRN Pain 3 days 03/18/24 Unknown Rx mg tablet #12 TABLETS Allergy/AdvReac Type Severity Reaction Status Date / Time LISBETH Inhibitors AdvReac cough Verified 03/18/24 20:19 Family History Father Myocardial infarction Sudden cardiac Mother Cancer Sister LBBB (left bundle branch block) Surgical History History of left heart catheterization (09/19/14) H/O coronary artery bypass surgery (06/15/07) History of total hysterectomy History of total hysterectomy with bilateral salpingo-oophorectomy (BSO) Social History Smoking Status: Never smoker alcohol intake: never substance use type: does not use caffeine: Yes Type: tea what type of physical activity do you participate in: walking and other details: tredmill frequency: daily duration: 15-30 minutes/day seatbelt use: always do you feel safe at home: Yes ROS ROS ED Constitutional Constitutional ED: Denies chills, fever(s) or weight loss Eyes Eyes: Denies change in vision or diplopia ENT ENT ED: Denies ear pain, rhinorrhea or sore throat Cardiovascular Cardiovascular: Denies chest pain, orthopnea, palpitations or racing heartbeat Respiratory/Chest Respiratory/Chest: Denies cough, dyspnea or orthopnea Gastrointestinal Gastrointestinal: Reports abdominal pain, nausea and vomiting; Denies diarrhea Genitourinary Genitourinary ED: Denies dysuria, hematuria or urinary frequency Musculoskeletal Musculoskeletal: Reports back pain; Denies arthralgias or myalgias Integumentary Denies abscess or rash Neurologic Neurologic: Denies headache(s) or weakness Psychiatric Psychiatric: Denies anxiety, depression, suicidal ideation or suicidal thoughts Endocrine Endocrinology: Denies polydipsia, polyphagia or polyuria Allergic/Immunologic Allergic/Immunologic ED: Denies mouth swelling, tongue swelling or urticaria EXAM Physical Exam Const Vital Signs: 03/18/24 20:18 03/18/24 20:22 Temperature 98.1 F 98.1 F Temperature Source Oral Oral Pulse Rate 77 77 Respiratory Rate 16 16 Blood Pressure 167/99 H 167/99 H Blood Pressure Mean 121 121 Pulse Ox 97 97 Oxygen Delivery Method Room Air Room Air Positive well nourished and well developed General Appearance ED: well developed HEENT Reports normocephalic, head/scalp atraumatic and moist mucous membranes Eyes PERRL and EOMs intact bilaterally Neck no lymphadenopathy, supple and no JVD Resp normal respiratory effort and clear to auscultation bilaterally Cardio regular rate, regular rhythm and no murmurs GI normal to inspection, nondistended, normoactive bowel sounds and non-tender Palpation: soft Back/Spine no CVA tenderness and normal ROM Extremity normal to inspection General Extremety ED: Negative for edema General Extremity: Negative for edema Neuro oriented x3 and CN's II-XII intact bilaterally Sensorium / Orientation: alert Motor Exam: strength 5/5 throughout Psych mental status grossly normal Mood & Affect: Negative for depressed or tearful Skin no rashes or lesions noted and no wounds MDM MDM MDM Narrative Medical decision making narrative: Differential diagnosis includes but not limited to kidney stone UTI diverticulitis volvulus colitis musculoskeletal pain pyelonephritis Patient's white count slightly elevated 11.1. Creatinine 1.23 BUN of [address] of the abdomen pelvis was obtained without contrast. This demonstrates a 2 mm obstructing distal ureteral stone on the left with associated hydronephroureter. Urinalysis demonstrates negative nitrates 25-50 red cells 5- 10 white cells rare bacteria. I do not feel that this is an obvious urinary tract infection. Patient received Toradol morphine Zofran and IV fluids. The above findings were discussed with the patient. Clinically I believe story fits with the diagnosis of kidney stone. Patient will have pain medication and nausea medicine written for her. Patient to return if worsening or concerns. Follow-up with primary care or urology. History & Record Review Discussion w/independent historian: Patient, Family and Significant other Additional record(s) reviewed:: Prior labs Lab Data Attestation: I reviewed the patient's lab results. Labs: Laboratory Results - last 24 hr 03/18/24 21:02 WBC 11.1 H RBC 5.13 Hgb 13.9 Hct 43.8 MCV 85.4 MCH 27.1 MCHC 31.7 L RDW Std Deviation 43.2 RDW Coeff of [place] 14.0 Plt Count 179 MPV 10.8 Immature Gran % (Auto) 0.500 Neut % (Auto) 74.3 H Lymph % (Auto) 16.1 L [place] % (Auto) 6.8 Eos % (Auto) 1.8 Baso % (Auto) 0.5 Absolute Neuts (auto) 8.2 H Absolute Lymphs (auto) 1.78 Nucleated RBC % 0 Sodium 143 Potassium 4.1 Chloride 109 H Carbon Dioxide 29.0 Anion Gap 5 BUN 20 H Creatinine 1.23 H Estim Creat Clear Calc 37.90 Est GFR (MDRD) Af Amer 55 L Est GFR (MDRD) Non-Af 46 L BUN/Creatinine Ratio 16.3 Glucose 148 H Calcium 10.0 Urine Color Yellow Urine Clarity Clear Urine pH 6.0 Ur Specific [place] 1.015 Urine Protein 100 H Urine Glucose (UA) Normal Urine Ketones Negative Urine Occult Blood 250 H Urine Nitrite Negative Urine Bilirubin Negative Urine Urobilinogen Normal Ur Leukocyte Esterase 25 H Urine RBC 25-50 SEEN Urine WBC 5-10 SEEN Ur Squamous Epith Cells 0 SEEN Ur Transition Epith Cell 0-5 SEEN Urine Bacteria RARE Coarse Granular Casts 0-5 SEEN Urine Mucus 0 SEEN Radiography Diagnostic Testing: Clinical Impression(s) from Imaging Studies Abdomen/Pelvis CT 03/18/24 20:41 IMPRESSION: Obstruction of the left collecting system due to a 2 mm stone at the UVJ. There is mild left-sided hydronephrosis and hydroureter. Electronically Signed: Kieran Arzate MD at 21:25 EST , Discharge Plan Triage Chief Complaint: Flank Pain Other Complaint: Abd Pain ED Provider: Alex Taylor Dx/Rx/DC Orders Clinical Impression: Ureterolithiasis, Renal colic on left side Instructions: ED Kidney Stone, Passed Prescriptions: New oxycodone-acetaminophen 5-325 mg tablet 1 tab PO Q6H PRN PRN (Reason: Pain) 3 Days Qty: 12 0RF ondansetron 4 mg tablet,disintegrating 4 mg PO Q6H PRN PRN (Reason: Nausea) Qty: 15 0RF No Action metformin 500 mg tablet extended release 24 hr 1,000 mg PO BID Patient Comments: TAKE 2 TABLETS BY MOUTH TWICE A DAY Immunomax PO DAILY cholecalciferol (vitamin D3) 1,250 mcg (50,000 unit) capsule 1,250 mcg PO QWEEK lorazepam 0.5 mg tablet 0.5 mg PO DAILY PRN citalopram 10 mg tablet 10 mg PO DAILY rosuvastatin 40 mg tablet 40 mg PO DAILY levothyroxine 88 MCG tablet 88 mcg PO DAILY aspirin 81 MG tablet,chewable 81 mg PO DAILY@0800 metoprolol succinate 25 MG tablet 25 mg PO DAILY pyste-[id number]-[id number]-epa-fish oil-D3 1 EACH capsule 1 ea PO DAILY losartan 25 mg tablet 25 mg PO DAILY Qty: 90 3RF Primary Care Provider: Kassi Godoy Referrals: Hernan Angelo MD [Med Staff - Active Staff] - (as needed for Urology) Kassi Godoy DO [Primary Care Provider] - As Needed Activity Restrictions/Additional Instructions: You have been diagnosed with 2 mm distal ureteral stone. Your pain may come back. I have written for some pain and nausea medication. If you find your pain is not controlled please come back to get it under control. It is not uncommon for people to have significant pain with the stones before they pass. Given the size and the location of your stone it is highly likely you will not need surgery for this. You may follow-up with your primary care doctor. I have also provided you with Dr. Angelo for urology if he would like to see a urologist locally. Print Language: Citizen Of [place] Disposition Disposition: Home, Self Care
[2024-03-18] MEDS: Morphine 4 MG/ML Syringe IV (20:55)
[2024-03-18] MEDS: 0.9% Normal Saline (1000mL) 1,000 ML 250 ML IV (20:55)
[2024-03-18] MEDS: Ketorolac 30 MG/ML Syringe 15 MG IV (20:55)
[2024-03-18] MEDS: Ondansetron 4 MG/2 ML Vial IV (20:55)
[2024-03-18 21:16] LABS: Mucous, Urine 0 SEEN /hpf (<or=2+); Squamous Epithelial Cells - UA 0 SEEN /hpf (5-10)
[2024-03-18 21:20] LABS: Color, Urine Yellow (Yellow); Glucose, Dipstick Normal (Normal); Ketone-Dipstick Negative (Negative); Leukocyte Esterase-Dipstick 25 /ul (Negative); Nitrite-Dipstick Negative (Negative); Occult Blood-Urine 250 /ul (Negative); Protein-Dipstick 100 mg/dl (Negative); Specific Gravity, Urine 1.015 (1.002-1.030); Urine Bilirubin Dipstick Negative (Negative); Urine Clarity Clear (Clear); Urine Urobilinogen Normal (Normal)
[2024-03-18 21:27] LABS: Absolute Lymphocyte Count 1.78 X10^3/uL (0.83-4.51); Absolute Neutrophil Count 8.2 X10^3/uL (2.0-7.7); Basophil# 0.06 X10^3/uL; Basophil% 0.5 % (0-1); Eosinophils% 1.8 % (0-5); Hematocrit 43.8 % (37-47); Hemoglobin 13.9 g/dL (12.0-15.0); Lymphocyte # 1.78 X10^3/ul (0.83-4.51); Lymphocyte % 16.1 % (19-41); Mean Corp Hgb Conc 31.7 g/dL (32-36); Mean Corpuscular Hgb 27.1 pg (27.0-32.0); Mean Corpuscular Volume 85.4 fL (81-99); Mean Platelet Vol. 10.8 fl (6.2-12.0); Monocyte# 0.75 X10^3/uL; Monocyte% 6.8 % (0-10); NRBC Flagged by Analyzer 0 % (0-5); Neutrophil % 74.3 % (47-70); Platelet Count 179 K/mm3 (150-450); RBC Distribution Width SD 43.2 fl (35.1-43.9); Red Blood Count 5.13 M/mm3 (4.2-5.4); White Blood Count 11.1 K/mm3 (4.4-11.0)
[2024-03-18 21:34] LABS: Anion Gap 5 (5-15); BUN 20 mg/dL (7-18); BUN/Creat Ratio 16.3 RATIO (10-20); Chloride 109 mmol/L (98-107); Creatinine, Serum 1.23 mg/dL (0.55-1.02); EST Glomerular Filtration Rate 46 mL/min (>60); Est Glom Filt Rate - Afr Amer 55 mL/min (>60); Glucose 148 mg/dL (74-106); Potassium 4.1 mmol/L (3.5-5.1); Sodium Level 143 mmol/L (136-145)
[2024-03-18 22:03] LABS: Bacteria RARE /hpf (None Seen); Coarse Granular Cast 0-5 SEEN /lpf (0-5 /lpf); Red Blood Cells-Urine 25-50 SEEN /hpf (0-5); Transitional Epithelial - Ur 0-5 SEEN /hpf (0-5); White Blood Cells 5-10 SEEN /hpf (0-5)
[2024-03-18 22:18] VITALS: BP 112/87; PULSE 65; RESP 16; O2SAT 98
== END 2024-03-18 22:31 | disposition home or self-care (01) ==
PROVIDERS: Emergency Provider Emergency Medicine; PCP Internal Medicine; Referring Provider Emergency Medicine; Visit Provider Emergency Medicine
DX: N13.2 Hydronephrosis with renal and ureteral calculous obstruction (principal); E11.9 Type 2 diabetes mellitus without complications; I25.10 Atherosclerotic heart disease of native coronary artery without angina pectoris; I10 Essential (primary) hypertension; E78.5 Hyperlipidemia, unspecified; Z95.1 Presence of aortocoronary bypass graft; Z79.82 Long term (current) use of aspirin; Z79.84 Long term (current) use of oral hypoglycemic drugs; Z79.899 Other long term (current) drug therapy

== ENCOUNTER → 2024-04-26 | Outpatient (CLI) | payer MEDICARE, OTHER, SELFPAY ==
--- NOTE | 2024-04-26 18:45 | CT_ITS ---
PROCEDURE: Noncontrast CT of the abdomen/pelvis. REASON FOR EXAM: History of kidney stone. TECHNIQUE: Contiguous unenhanced axial CT images were obtained through the abdomen/pelvis. Sagittal and coronal reformats were created. COMPARISON: 03/18/2024 FINDINGS: The bones are osteopenic with moderate degenerative changes in the spine. Evaluation of the solid organs and vascular structures is limited due to lack of intravenous contrast. Proximal femurs are intact. Mild degenerative changes in the hip joints. Heart is not enlarged. No sizable pericardial effusion. Lower breast tissue unremarkable. The included lower ribs are intact. Lower lungs clear except for a 2 mm partially included nodule lateral anterior right lower lobe image 1 of the axial images. The abdominal aorta is normal in caliber, with a moderate amount of atherosclerotic calcification. Patchy wall thickening of the stomach may be due to lack of distention versus peristalsis. No calcified gallstones. Areas of induration of the subcutaneous fat ventral abdomen, similar to the prior study and may be due to prior subcutaneous injections. The liver, adrenal glands, spleen, and pancreas show no specific abnormality. No abnormally dilated bowel segments or free intraperitoneal air. No large abdominal wall defect. No focal abnormality of the urinary bladder. The uterus is absent. No adnexal mass. Scattered patchy wall thickening of the colon may be due to lack of distention versus peristalsis or chronic diverticular disease. No acute diverticulitis. Small splenule near the hilum is similar to the previous study. [id number] stool in the colon. Normal appendix. No abdominal/pelvic adenopathy or ascites. Kidneys are symmetric in size and attenuation. No solid renal mass or obstructive uropathy. 2 mm tiny nonobstructing right renal calculus. No definite ureteral calculi or obstructive uropathy. 2 mm distal left ureteral calculus described on the prior study is not present on the current examination. CT/Abdomen/Pelvis without Cont IMPRESSION: No acute findings in the abdomen/pelvis. The 2 mm obstructing distal left uret eral calculus on the prior study of 03/18/2024 is not demonstrated on the current study. 2 mm nonobstructing right renal calculus. No bowel obstruction or perforation. Normal appendix. Mild colonic diverticulosis. One or more dose reduction techniques were used (e.g., Automated exposure contr ol, adjustment of the mA and/or kV according to patient size, use of iterative reconstruction technique). Reading Location: [facility]
== END | disposition home or self-care (01) ==
LOC: CT 18:40
PROVIDERS: PCP Internal Medicine; Referring Provider Urology; Visit Provider Urology
DX: N20.2 Calculus of kidney with calculus of ureter (principal)
CPT/HCPCS: 74176

== ENCOUNTER → 2024-09-02 | Outpatient (CLI) | payer MEDICARE, OTHER, SELFPAY | END | disposition home or self-care (01) | LOC: LABSPEC 10:29 | PROVIDERS: PCP Internal Medicine; Referring Provider Physician Assistant Surgical; Visit Provider Physician Assistant Surgical | DX: R82.90 Unspecified abnormal findings in urine (principal) | CPT/HCPCS: 87086 ==

== ENCOUNTER → 2024-09-20 | Outpatient (CLI) | payer MEDICARE, OTHER, SELFPAY ==
--- NOTE | 2024-09-20 15:11 | US_ITS ---
EXAM: US Pelvis Transabdominal and Transvaginal, Complete CLINICAL INDICATION: PELVIC PAIN IN FEMALE (R10.2) TECHNIQUE: Real-time complete transabdominal and transvaginal pelvic ultrasound with image documentation. Transvaginal imaging was used for better evaluation of the endometrium and adnexa. COMPARISON: No relevant prior studies available. FINDINGS: UTERUS/CERVIX: Probable hysterectomy. RIGHT OVARY: Right ovary not visualized. LEFT OVARY: Unremarkable. Normal blood flow. The left ovary measures 1.2 x 1.2 x 0.8 cm. FREE FLUID: No free fluid. BLADDER: Unremarkable as visualized. Wall is normal thickness for degree of distention. OTHER FINDINGS: Probable 0.8 cm cyst. US/Pelvic (Non ) IMPRESSION: No acute findings in the pelvis. Reading Location: [id number]
--- NOTE | 2024-09-20 15:54 | NURSING ---
ED Huang was called regarding pt feeling unwell post Ultrasound. Pt sitting upright in waiting area with a green emesis bag. Reports feeling dizzy and sick to her stomach. Pt has good color, able to speak in full, complete sentences. States that she has only eating a small amount of cheese today. She believes she has a kidney stone and is unable to get in for imaging of that, so she states she took oxycodone she had at home prior to her ultrasound appt today on an empty stomach. Pt's VS taken BP: 144/84 HR: 72 Resp: 16 SpO2: 96%. Pt advised of her VS, given saltines and water. ED Huang offered to take pt to ED or for pt to sit and wait awhile until she felt better. Pt would like to sit in waiting area. ED Huang asked if pt would like to call someone to get her and she does not have anyone who can do that. Pt would like to sit and wait awhile. ED Huang told her not to hesitate to tell the registration desk if she needs further assistance. Pt agreeable.
== END | disposition home or self-care (01) ==
PROVIDERS: PCP Internal Medicine; Referring Provider Internal Medicine; Visit Provider Internal Medicine
DX: R10.2 Pelvic and perineal pain (principal)
CPT/HCPCS: 76856

== ENCOUNTER → 2024-11-02 | Outpatient (CLI) | payer MEDICARE, OTHER, SELFPAY ==
--- NOTE | 2024-11-02 10:23 | BD_ITS ---
PROCEDURE: DEXA BONE DENSITY STUDY 11/02/2024 REASON FOR EXAM: F, age 74 y/o . Postmenopausal. TECHNIQUE: Procedure Code: BDDBD Modality: DX Procedure: DEXA BONE DENSITY STUDY COMPARISON: Prior study dated October 29, 2022. FINDINGS: BMD and T-SCORES Lumbar spine: 0.929 g/cm2, T-score -1.1 Levels: L1 through L4 Change from prior: Improvement of 2.5%. Left femoral neck: 0.774 g/cm2, T-score -0.7 Femoral neck comparison data not recommended for monitoring change. Left total hip: 0.903 g/cm2, T-score -0.3 Change from prior: Loss of 3%. Right femoral neck: 0.770 g/cm2, T-score -0.7 Femoral neck comparison data not recommended for monitoring change. Right total hip: 0.882 g/cm2, T-score -0.5 Change from prior: Loss of 2.3%. The World Health Organization has defined the following categories based on bone density: Normal bone density: T-score equal to or greater than -1.0 Osteopenia: T-score between -1.0 and -2.5 Osteoporosis: T-score equal to or less than -2.5 FRAX (or Comparable) Fracture Risk Assessment: 10 Year Probability of Fracture: Major Osteoporotic Fracture: 8.9% Hip Fracture: 1% (Note: FRAX is not to be reported in setting of normal range bone density, osteoporosis on DEXA, known history of osteoporosis, prior osteoporotic hip or vertebral fracture, or for any patient undergoing pharmacological treatment for bone loss.) The National Osteoporosis Foundation (NOF) recommends pharmacological treatment for patients with a FRAX 10-year risk of 3% or higher for a hip fracture, or 20% or higher for a major osteoporotic fracture, to prevent osteoporosis and reduce fracture risk. The patient does not meet the pharmacological treatment recommendations for prevention of osteoporosis. BD/Dexa Bone Density Study IMPRESSION: OSTEOPENIA. Recommend follow-up as clinically warranted. Reading Location: [place] [id number]
== END | disposition home or self-care (01) ==
LOC: OPBD 10:17
PROVIDERS: PCP Internal Medicine; Referring Provider Internal Medicine; Visit Provider Internal Medicine
DX: Z13.820 Encounter for screening for osteoporosis (principal); N95.9 Unspecified menopausal and perimenopausal disorder
CPT/HCPCS: 77080

== ENCOUNTER → 2025-02-21 | Outpatient (CLI) | payer MEDICARE, OTHER, SELFPAY | END | disposition home or self-care (01) | PROVIDERS: PCP Internal Medicine; Referring Provider Internal Medicine; Visit Provider Internal Medicine | DX: R30.0 Dysuria (principal) | CPT/HCPCS: 87086 ==

== ENCOUNTER → 2025-03-02 | Outpatient (CLI) | payer MEDICARE, OTHER, SELFPAY ==
--- NOTE | 2025-03-02 15:15 | BI_ITS ---
EXAM: SCRN MAMM (CAD)W/MAIRA BILAT DATE: 03/02/2025 CLINICAL HISTORY: F, Age 75 y/o , BREAST CANCER SCREENING TECHNIQUE: Procedure Code: [id number] Modality: MG Procedure: SCRN MAMM (CAD)W/MAIRA BILAT COMPARISON: Prior exam(s) dated 02/09/2024, 02/07/2023, 02/05/2022. FINDINGS: TISSUE DENSITY: There are scattered areas of fibroglandular density. Bilateral Breast Mammographic Findings: No significant masses, calcifications or other abnormalities are identified. BI/SCRN MAMM (CAD)W/MAIRA BILAT IMPRESSION: There is no mammographic evidence of malignancy. OVERALL FINAL ASSESSMENT BI-RADS 1: NEGATIVE. RECOMMENDATION: Routine annual follow-up in 1 Year Additional Recommendation none A letter with findings and recommendations will be mailed to the patient. Reading Location: [id number]
== END | disposition home or self-care (01) ==
LOC: OPBI 14:50
PROVIDERS: PCP Internal Medicine; Referring Provider Internal Medicine; Visit Provider Internal Medicine
DX: Z12.31 Encounter for screening mammogram for malignant neoplasm of breast (principal)
CPT/HCPCS: 77063; 77067